=== PATIENT | female | born 2000 | race Caucasian/White ===

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

== ENCOUNTER 2019-01-11 20:50 | Inpatient (IN) | payer OTHER ==
[2019-01-11 21:08] LABS: Glucose,Whole Blood 511 mg/dL (75-99)
[2019-01-11] MEDS ORDERED: SODIUM CHLORIDE 0.9% 1,000 ML IV ONE (21:12)
[2019-01-11 21:29] LABS: Basophils # (A) 0.3 k/uL (0-0.2); Basophils % (A) 1 %; Eosinophils # (A) 0.4 k/uL (0-0.7); Eosinophils % (A) 1 %; HCT 45.6 % (34.0-46.0); HGB 12.9 gm/dL (11.4-16.0); Hypochromasia Marked; Lymphocytes # (A) 6.3 k/uL (1.0-4.8); Lymphocytes % (A) 17 %; MCH 29.6 pg (25.0-35.0); MCHC 28.4 g/dL (31.0-37.0); MCV 104.5 fL (80.0-100.0); Macrocytosis Slight; Mean Platelet Volume 7.6; Monocytes # (A) 1.7 k/uL (0-1.0); Monocytes % (A) 5 %; Neutrophils % (A) 75 %; Platelet Count 365 k/uL (150-450); RBC 4.37 m/uL (3.80-5.40); RDW 12.4 % (11.5-15.5); WBC 37.2 k/uL (4.0-11.0)
[2019-01-11 21:38] LABS: ALT 33 U/L (9-52); AST 84 U/L (14-36); African American GFR (CKD) >90 (>60 ml/min/1.73 sqM); Albumin 3.9 g/dL (3.5-5.0); Alkaline Phosphatase 173 U/L (38-126); Blood Urea Nitrogen 22 mg/dL (7-17); Calcium 7.3 mg/dL (8.4-10.2); Chloride 118 mmol/L (98-107); HCG,Qualitative Serum Not Detected; Magnesium 2.1 mg/dL (1.6-2.3); Sodium 148 mmol/L (137-145); Total Bilirubin 0.4 mg/dL (0.2-1.3); Total Protein 6.7 g/dL (6.3-8.2)
[2019-01-11 21:52] LABS: Carbon Dioxide <5 mmol/L (22-30); Glucose 556 mg/dL (74-99)
[2019-01-11] MEDS ORDERED: MORPHINE SULFATE 4 MG/ML SYRINGE IVP STA (22:02)
--- NOTE | 2019-01-11 22:21 | ED ---
General Adult HPI - General Chief complaint: Recheck/Abnormal Lab/Rx Stated complaint: Transfer Time Seen by Provider: 01/11/19 20:54 Source: family, EMS Mode of arrival: EMS Limitations: altered mental status - History of Present Illness Initial comments: The patient is a 18-year-old female with past medical history of type 1 diabetes who presents to the emergency department in [facility]. She is a transfer from [facility]. I reviewed the patient's charts from their facility. It does reveal that the patient was found minimally responsive at a friend's house. She was taken into [facility] for evaluation she was found to be in DKA. The patient's mother is at bedside. She states that her daughter has been in DKA several times for noncompliance and also for acute urinary tract infections. She does follow with Dr. Yeboah. It is unknown when the patient took her last dose of insulin. Review of the patient's [place] record demonstrates that his pH was 6.7. Her initial glucose was in the 600s. CO2 was less than 2. They did provide her with 4 L of fluid and started her on an insulin drip at 6 units per hour. They discontinued the drip prior to her transfer. They also gave her dose of Vanco and cefepime as her white blood cell count was 42,000. Chest x-ray was negative. She was then transferred in critical stable condition. She does arrive to me and cannot provide any history. She remains in the examination cart and moans. She will open her eyes however she is very uncooperative. She will follow all of her mother's commands. The remainder of the HPI is limited because the patient's current condition - Related Data Previous Rx's Medication Instructions Recorded Escitalopram [Lexapro] 10 mg PO DAILY #30 tab 01/14/19 Insulin Aspart [NovoLOG Flexpen] 0 units SQ DIRECTED #1 ml 01/14/19 Insulin Aspart [NovoLOG Flexpen] See Protocol SQ ACHS #1 pen 01/14/19 Insulin Glargine,Hum.rec.anlog 30 unit SQ HS #0 01/14/19 [Lantus Solostar] Nicotine 21Mg/24Hr Patch [Habitrol] 1 patch TRANSDERM DAILY #14 patch 01/14/19 Allergies Allergy/AdvReac Type Severity Reaction Status Date / Time guanfacine [From Intuniv ER] Allergy Unknown Verified 01/11/19 21:59 insulin lispro [From Humalog] Allergy Anaphylaxis Verified 01/11/19 21:59 insulin regular, human Allergy Dyspnea, Verified 01/11/19 21:59 [From Humulin R] Hives Review of Systems ROS Statement: Those systems with pertinent positive or pertinent negative responses have been documented in the HPI. ROS Other: All systems not noted in ROS Statement are negative. Past Medical History Past Medical History: Diabetes Mellitus, GERD/Reflux, Skin Disorder Additional Past Medical History / Comment(s): migraines, psoriasis, was in [facility] 06/2015 with pancreatitis and diabetic ketoacidosis. diabetic since age 1, History of Any Multi-Drug Resistant Organisms: None Reported Past Surgical History: Appendectomy, Cholecystectomy Additional Past Surgical History / Comment(s): EGD, Past Anesthesia/Blood Transfusion Reactions: Motion Sickness, Postoperative Nausea & Vomiting (PONV) Additional Past Anesthesia/Blood Transfusion Reaction / Comment(s): "took her longer to come out". Past Psychological History: ADD/ADHD, Anxiety, PTSD Smoking Status: Light tobacco smoker Past Alcohol Use History: None Reported Past Drug Use History: None Reported - Past Family History Mother Family Medical History: No Reported History Additional Family Medical History / Comment(s): "not in contact with mother" Father History Unknown: Yes General Exam Limitations: altered mental status General appearance: alert, in distress Head exam: Present: atraumatic, normocephalic Eye exam: Present: normal appearance, PERRL, EOMI ENT exam: Present: mucous membranes dry Neck exam: Absent: tenderness, meningismus Respiratory exam: Present: normal lung sounds bilaterally. Absent: wheezes, rales, rhonchi Cardiovascular Exam: Present: normal rhythm, tachycardia GI/Abdominal exam: Present: tenderness, guarding Extremities exam: Present: full ROM. Absent: tenderness Back exam: Present: normal inspection Neurological exam: Present: altered Psychiatric exam: Present: agitated Skin exam: Present: intact, diaphoretic Course Vital Signs 01/11/19 01/11/19 01/11/19 20:56 21:00 21:10 Temperature Pulse Rate 112 H Respiratory 40 H Rate Blood Pressure 126/81 126/81 143/114 O2 Sat by Pulse 100 98 99 Oximetry 01/11/19 01/11/19 01/11/19 21:20 21:30 22:38 Temperature Pulse Rate 113 H 109 H Respiratory 35 H 26 H Rate Blood Pressure 110/60 109/66 110/70 O2 Sat by Pulse 96 100 Oximetry 01/11/19 01/11/19 01/11/19 22:40 23:00 23:10 Temperature Pulse Rate 107 H Respiratory 32 H Rate Blood Pressure 110/70 115/63 115/63 O2 Sat by Pulse 100 100 Oximetry 01/11/19 01/12/19 01/12/19 23:40 00:10 00:17 Temperature 92.8 F L Pulse Rate 116 H Respiratory 32 H Rate Blood Pressure 137/100 139/85 139/85 O2 Sat by Pulse 100 Oximetry 01/12/19 01/12/19 00:40 01:20 Temperature Pulse Rate Respiratory Rate Blood Pressure 126/69 110/63 O2 Sat by Pulse 100 Oximetry EKG Findings - EKG Comments: EKG Findings:: EKG demonstrates a sinus tachycardia with a ventricular rate of 110. AR interval 146. QRS E4. QTC 503. There is significant baseline artifact. No acute ST segment elevations or depressions. Medical Decision Making - Medical Decision Making Upon arrival the patient is placed in trauma bay 1. She is hooked up to continuous pulse ox and cardiac monitoring. A peripheral IV had been esta blished. As the patient did receive 4 L bolus of normal saline I did place her on 150 mL of normal saline per hour. I did repeat laboratory studies and an ABG. I did scan the patient's brain as she is altered. I also performed a CT of the patient's abdomen and pelvis as her mother reports that the patient has had diffuse abdominal pain and is requesting the scan. Upon review of the patient's results she continues to have a pH of 6.7. She was previously given 1 amp of bicarbonate at [facility]. The patient's blood glucose is 556 on Accu-Chek and 511 on the CMP. Sodium is 148, chloride 118, white blood for count 37,000, lactic acid 3.2. Acetone is positive. test is nega tive. Because of these results I did initiate the patient once again on an insulin drip at 4 units per hour. The patient is on a NovoLog drip as she is ALLERGIC to other insulins. I did call and inform the pharmacy of this and they were aware of the requested medication. The patient should be started at 6 units per hour however I am conservative as her mother reports that she has a tendency to drop very fast. I did call discuss case with Dr. branham who did recommend ICU admission. I called and discussed the case with Dr. Espino. I was advised to continue the patient on normal saline. He also requested I give the patient 2 amps of bicarb for her continued pH of 6.7. We did attempt to obtain a temp on the patient. We are forced to obtain a rectal temp as it is difficult to get an axillary. The patient does demonstrate hypothermia with a temp of 92. The patient is then placed on a heating blanket. The patient continues to be responsive to her mother's commands. I updated the parents thoroughly. The patient was then transported to the ICU in critical condition. Critical care time included for review of the patients transfer chart, serial physical exams, consultation with pharmacy, hospitalist and filemaker developer and management of insulin and crystalloid fluid drips. - Lab Data Result diagrams: 01/13/19 05:04 01/14/19 05:32 Lab Results 01/11/19 01/11/19 01/11/19 Range/Units 21:00 21:00 21:00 WBC 37.2 H (4.0-11.0) k/uL RBC 4.37 (3.80-5.40) m/uL Hgb 12.9 (11.4-16.0) gm/dL Hct 45.6 (34.0-46.0) % MCV 104.5 H (80.0-100.0) fL MCH 29.6 (25.0-35.0) pg MCHC 28.4 L (31.0-37.0) g/dL RDW 12.4 (11.5-15.5) % Plt Count 365 (150-450) k/uL Neutrophils % 75 % Lymphocytes % 17 % Monocytes % 5 % Eosinophils % 1 % Basophils % 1 % Neutrophils # 28.0 H (1.3-7.7) k/uL Lymphocytes # 6.3 H (1.0-4.8) k/uL Monocytes # 1.7 H (0-1.0) k/uL Eosinophils # 0.4 (0-0.7) k/uL Basophils # 0.3 H (0-0.2) k/uL Hypochromasia Marked Macrocytosis Slight Sample Site ABG pH (7.35-7.45) ABG pCO2 (35-45) mmHg ABG pO2 (83-108) mmHg ABG O2 Saturation (94-97) % Alessandro Test FiO2 % Sodium 148 H (137-145) mmol/L Potassium 5.0 (3.5-5.1) mmol/L Chloride 118 H (98-107) mmol/L Carbon Dioxide <5 L* (22-30) mmol/L Anion Gap mmol/L BUN 22 H (7-17) mg/dL Creatinine 0.90 (0.52-1.04) mg/dL Est GFR (CKD-EPI)AfAm >90 (>60 ml/min/1.73 sqM) Est GFR (CKD-EPI)NonAf >90 (>60 ml/min/1.73 sqM) Glucose 556 H* (74-99) mg/dL POC Glucose (mg/dL) (75-99) mg/dL POC Glu Therapist ID Estimated Ave Glu mg/dL Hemoglobin A1c (4.0-6.0) % Lactic Ac Sepsis Rflx Plasma Lactic Acid Manny 3.2 H* (0.7-2.0) mmol/L Calcium 7.3 L (8.4-10.2) mg/dL Magnesium 2.1 (1.6-2.3) mg/dL Total Bilirubin 0.4 (0.2-1.3) mg/dL AST 84 H (14-36) U/L ALT 33 (9-52) U/L Alkaline Phosphatase 173 H (38-126) U/L Ammonia (<30) umol/L Total Protein 6.7 (6.3-8.2) g/dL Albumin 3.9 (3.5-5.0) g/dL HCG, Qual Not Detected Acetone, Qual Positive (Negative) 01/11/19 01/11/19 01/11/19 Range/Units 21:00 21:00 21:04 WBC (4.0-11.0) k/uL RBC (3.80-5.40) m/uL Hgb (11.4-16.0) gm/dL Hct (34.0-46.0) % MCV (80.0-100.0) fL MCH (25.0-35.0) pg MCHC (31.0-37.0) g/dL RDW (11.5-15.5) % Plt Count (150-450) k/uL Neutrophils % % Lymphocytes % % Monocytes % % Eosinophils % % Basophils % % Neutrophils # (1.3-7.7) k/uL Lymphocytes # (1.0-4.8) k/uL Monocytes # (0-1.0) k/uL Eosinophils # (0-0.7) k/uL Basophils # (0-0.2) k/uL Hypochromasia Macrocytosis Sample Site ABG pH (7.35-7.45) ABG pCO2 (35-45) mmHg ABG pO2 (83-108) mmHg ABG O2 Saturation (94-97) % Alessandro Test FiO2 % Sodium (137-145) mmol/L Potassium (3.5-5.1) mmol/L Chloride (98-107) mmol/L Carbon Dioxide (22-30) mmol/L Anion Gap mmol/L BUN (7-17) mg/dL Creatinine (0.52-1.04) mg/dL Est GFR (CKD-EPI)AfAm (>60 ml/min/1.73 sqM) Est GFR (CKD-EPI)NonAf (>60 ml/min/1.73 sqM) Glucose (74-99) mg/dL POC Glucose (mg/dL) 511 H (75-99) mg/dL POC Glu Therapist ID Antonia Mejía [address] Glu mg/dL 269 Hemoglobin A1c 11.0 H (4.0-6.0) % Lactic Ac Sepsis Rflx Plasma Lactic Acid Manny (0.7-2.0) mmol/L Calcium (8.4-10.2) mg/dL Magnesium (1.6-2.3) mg/dL Total Bilirubin (0.2-1.3) mg/dL AST (14-36) U/L ALT (9-52) U/L Alkaline Phosphatase (38-126) U/L Ammonia 115 H (<30) umol/L Total Protein (6.3-8.2) g/dL Albumin (3.5-5.0) g/dL HCG, Qual Acetone, Qual (Negative) 09/03/19 09/03/19 09/03/19 Range/Units 21:51 23:10 23:29 WBC (4.0-11.0) k/uL RBC (3.80-5.40) m/uL Hgb (11.4-16.0) gm/dL Hct (34.0-46.0) % MCV (80.0-100.0) fL MCH (25.0-35.0) pg MCHC (31.0-37.0) g/dL RDW (11.5-15.5) % Plt Count (150-450) k/uL Neutrophils % % Lymphocytes % % Monocytes % % Eosinophils % % Basophils % % Neutrophils # (1.3-7.7) k/uL Lymphocytes # (1.0-4.8) k/uL Monocytes # (0-1.0) k/uL Eosinophils # (0-0.7) k/uL Basophils # (0-0.2) k/uL Hypochromasia Macrocytosis Sample Site l rad ABG pH <6.80 L* (7.35-7.45) ABG pCO2 <15 L* (35-45) mmHg ABG pO2 148 H (83-108) mmHg ABG O2 Saturation 97.9 H (94-97) % Alessandro Test Yes FiO2 21 % Sodium (137-145) mmol/L Potassium (3.5-5.1) mmol/L Chloride (98-107) mmol/L Carbon Dioxide (22-30) mmol/L Anion Gap mmol/L BUN (7-17) mg/dL Creatinine (0.52-1.04) mg/dL Est GFR (CKD-EPI)AfAm (>60 ml/min/1.73 sqM) Est GFR (CKD-EPI)NonAf (>60 ml/min/1.73 sqM) Glucose (74-99) mg/dL POC Glucose (mg/dL) 413 H (75-99) mg/dL POC Glu Therapist ID Emily Booth [address] Glu mg/dL Hemoglobin A1c (4.0-6.0) % Lactic Ac Sepsis Rflx Y Plasma Lactic Acid Manny (0.7-2.0) mmol/L Calcium (8.4-10.2) mg/dL Magnesium (1.6-2.3) mg/dL Total Bilirubin (0.2-1.3) mg/dL AST (14-36) U/L ALT (9-52) U/L Alkaline Phosphatase (38-126) U/L Ammonia (<30) umol/L Total Protein (6.3-8.2) g/dL Albumin (3.5-5.0) g/dL HCG, Qual Acetone, Qual (Negative) 01/12/19 Range/Units 00:19 WBC (4.0-11.0) k/uL RBC (3.80-5.40) m/uL Hgb (11.4-16.0) gm/dL Hct (34.0-46.0) % MCV (80.0-100.0) fL MCH (25.0-35.0) pg MCHC (31.0-37.0) g/dL RDW (11.5-15.5) % Plt Count (150-450) k/uL Neutrophils % % Lymphocytes % % Monocytes % % Eosinophils % % Basophils % % Neutrophils # (1.3-7.7) k/uL Lymphocytes # (1.0-4.8) k/uL Monocytes # (0-1.0) k/uL Eosinophils # (0-0.7) k/uL Basophils # (0-0.2) k/uL Hypochromasia Macrocytosis Sample Site ABG pH (7.35-7.45) ABG pCO2 (35-45) mmHg ABG pO2 (83-108) mmHg ABG O2 Saturation (94-97) % Alessandro Test FiO2 % Sodium (137-145) mmol/L Potassium (3.5-5.1) mmol/L Chloride (98-107) mmol/L Carbon Dioxide (22-30) mmol/L Anion Gap mmol/L BUN (7-17) mg/dL Creatinine (0.52-1.04) mg/dL Est GFR (CKD-EPI)AfAm (>60 ml/min/1.73 sqM) Est GFR (CKD-EPI)NonAf (>60 ml/min/1.73 sqM) Glucose (74-99) mg/dL POC Glucose (mg/dL) 345 H (75-99) mg/dL POC Glu Therapist ID Edna Ace Estimated Ave Glu mg/dL Hemoglobin A1c (4.0-6.0) % Lactic Ac Sepsis Rflx Plasma Lactic Acid Manny (0.7-2.0) mmol/L Calcium (8.4-10.2) mg/dL Magnesium (1.6-2.3) mg/dL Total Bilirubin (0.2-1.3) mg/dL AST (14-36) U/L ALT (9-52) U/L Alkaline Phosphatase (38-126) U/L Ammonia (<30) umol/L Total Protein (6.3-8.2) g/dL Albumin (3.5-5.0) g/dL HCG, Qual Acetone, Qual (Negative) Critical Care Time Critical Care Time: Yes Total Critical Care Time: 35 (minutes) Disposition Clinical Impression: Low bicarbonate, DKA (diabetic ketoacidoses), Hypothermia, Leukocytosis, Fever Disposition: ADMITTED IP TO THIS [facility] Condition: Stable Is patient prescribed a controlled substance at d/c from ED?: No Decision to Admit Reason: Admit from EC Decision Date: 01/12/19 Decision Time: 00:02
[2019-01-11] MEDS ORDERED: SODIUM CHLORIDE 0.9% IV ONE (22:30)
[2019-01-11] MEDS ORDERED: NOVOLOG IV ONE (22:30)
--- NOTE | 2019-01-11 23:09 | CT ---
EXAM: CT Head Without Intravenous Contrast CLINICAL HISTORY: ITS.REASON CT Reason: pain TECHNIQUE: Axial computed tomography images of the head/brain without intravenous contrast. CTDI is 49.1 mGy and DLP is 1095 mGy-cm. This CT exam was performed using one or more of the following dose reduction techniques: automated exposure control, adjustment of the mA and/or kV according to patient size, and/or use of iterative reconstruction technique. COMPARISON: None. FINDINGS: Brain: Unremarkable. No hemorrhage. No significant white matter disease. No edema. Ventricles: Unremarkable. No ventriculomegaly. Bones/joints: Unremarkable. No acute fracture. Soft tissues: Unremarkable. Sinuses: Unremarkable as visualized. No acute sinusitis. Mastoid air cells: Unremarkable as visualized. No mastoid effusion. IMPRESSION: No intracranial hemorrhage or other acute intracranial abnormality.
[2019-01-11 23:12] LABS: Glucose,Whole Blood 413 mg/dL (75-99)
[2019-01-11] MEDS: [UNRECOGNIZED DRUG - REMARK] IV SCH (23:24)
--- NOTE | 2019-01-11 23:26 | CT ---
EXAM: CT Abdomen and Pelvis With Intravenous Contrast CLINICAL HISTORY: ITS.REASON CT Reason: Pain TECHNIQUE: Axial computed tomography images of the abdomen and pelvis with intravenous contrast. CTDI is 9.4, 8.7 mGy and DLP is 543, 329 mGy-cm. This CT exam was performed using one or more of the following dose reduction techniques: automated exposure control, adjustment of the mA and/or kV according to patient size, and/or use of iterative reconstruction technique. Delayed imaging was performed. COMPARISON: None. FINDINGS: Lung bases: Unremarkable. No mass. No consolidation. ABDOMEN: Liver: Periportal edema is seen. Gallbladder and bile ducts: Gallbladder is not visualized. No ductal dilation. Pancreas: Unremarkable. No mass. No ductal dilation. Spleen: Unremarkable. No splenomegaly. Adrenals: Unremarkable. No mass. Kidneys and ureters: Unremarkable. No solid mass. No hydronephrosis. Stomach and bowel: Unremarkable. No obstruction. No mucosal thickening. PELVIS: Appendix: No findings to suggest acute appendicitis. Bladder: The urinary bladder is decompressed by a Celaya catheter. Reproductive: Unremarkable as visualized. ABDOMEN and PELVIS: Intraperitoneal space: Unremarkable. No free air. No significant fluid collection. Bones/joints: No acute fracture. No dislocation. Soft tissues: Unremarkable. Vasculature: Unremarkable. No abdominal aortic aneurysm. Lymph nodes: Unremarkable. No enlarged lymph nodes. IMPRESSION: No acute findings.
[2019-01-11 23:39] LABS: ABG Oxygen Saturation 97.9 % (94-97); ABG PO2 148 mmHg (83-108); Allen Test Performed? Yes
[2019-01-11 23:42] LABS: ABG PH <6.80 (7.35-7.45)
[2019-01-11 23:43] LABS: ABG PCO2 <15 mmHg (35-45)
[2019-01-12] MEDS ORDERED: SODIUM BICARB 8.4% 50 ML SYR (1 MEQ/ML) IV STA ×3 (00:10→09:53)
[2019-01-12 00:39] LABS: Glucose,Whole Blood 345 mg/dL (75-99)
[2019-01-12 01:11] LABS: Glucose,Whole Blood 408 mg/dL (75-99)
[2019-01-12 01:39] LABS: Glucose,Whole Blood 330 mg/dL (75-99)
[2019-01-12] MEDS ORDERED: Magnesium Replacement Protocol 1 EACH MISC MISCELLANE PRN (01:43)
[2019-01-12] MEDS ORDERED: Potassium Replacement Protocol 1 EACH MISC MISCELLANE PRN (01:43)
[2019-01-12] MEDS ORDERED: SODIUM CHLORIDE 0.9% 1,000 ML IV SCH (01:45)
[2019-01-12 02:41] LABS: Glucose,Whole Blood 284 mg/dL (75-99)
[2019-01-12 03:02] LABS: Glucose,Whole Blood 296 mg/dL (75-99)
[2019-01-12] MEDS ORDERED: DEXTROSE 5%-0.45% NACL 1,000 ML with POTASSIUM CHLORIDE 20 MEQ IV SCH ×2 (03:50)
[2019-01-12 03:55] LABS: VBG PH 6.84 (7.31-7.41)
[2019-01-12 04:00] LABS: Basophils # (A) 0.4 k/uL (0-0.2); Basophils % (A) 1 %; Eosinophils # (A) 0.1 k/uL (0-0.7); Eosinophils % (A) 1 %; HCT 42.6 % (34.0-46.0); HGB 13.1 gm/dL (11.4-16.0); Hypochromasia Marked; Lymphocytes # (A) 4.3 k/uL (1.0-4.8); Lymphocytes % (A) 15 %; MCHC 30.8 g/dL (31.0-37.0); Mean Platelet Volume 7.5; Monocytes # (A) 1.3 k/uL (0-1.0); Monocytes % (A) 4 %; Neutrophils # (A) 23.5 k/uL (1.3-7.7); Neutrophils % (A) 78 %; Platelet Count 335 k/uL (150-450); RBC 4.37 m/uL (3.80-5.40); RDW 13.1 % (11.5-15.5); WBC 29.9 k/uL (4.0-11.0)
[2019-01-12 04:03] LABS: Glucose,Whole Blood 298 mg/dL (75-99)
[2019-01-12 04:09] LABS: African American GFR (CKD) >90 (>60 ml/min/1.73 sqM); Blood Urea Nitrogen 20 mg/dL (7-17); Chloride 122 mmol/L (98-107); Glucose 272 mg/dL (74-99); Potassium 4.9 mmol/L (3.5-5.1); Sodium 153 mmol/L (137-145)
[2019-01-12 04:13] LABS: MCV 97.3 fL (80.0-100.0)
[2019-01-12 04:36] LABS: Carbon Dioxide <5 mmol/L (22-30)
[2019-01-12 05:16] LABS: Glucose,Whole Blood 219 mg/dL (75-99)
[2019-01-12 05:48] LABS: African American GFR (CKD) >90 (>60 ml/min/1.73 sqM); Blood Urea Nitrogen 19 mg/dL (7-17); Chloride 125 mmol/L (98-107); Glucose 242 mg/dL (74-99); Phosphorus 1.6 mg/dL (2.5-4.5); Potassium 4.5 mmol/L (3.5-5.1); Sodium 152 mmol/L (137-145)
[2019-01-12 06:00] LABS: Glucose,Whole Blood 270 mg/dL (75-99)
[2019-01-12 06:06] LABS: Appearance,Urine Clear (Clear); Bacteria,Urine Occasional /hpf; Bilirubin,Urine Negative (Negative); Blood,Urine Trace (Negative); Color,Urine Light Yellow; Glucose,Urine (UA) 1+ (Negative); Leukocyte Esterase,Urine Negative (Negative); Mucus,Urine Occasional /hpf; Nitrite,Urine Negative (Negative); PH, Urine 5.5 (5.0-8.0); Protein,Urine Negative (Negative); RBC,Urine 2 /hpf (0-5); Specific Gravity,Urine 1.015 (1.001-1.035); Squamous Epithelial Cell,Urine 2 /hpf (0-4); Urobilinogen,Urine <2.0 mg/dL (<2.0); WBC,Urine 1 /hpf (0-5)
[2019-01-12 06:17] LABS: Allen Test Performed? Yes
[2019-01-12 06:19] LABS: ABG PCO2 15 mmHg (35-45); ABG PH 7.02 (7.35-7.45); ABG PO2 125 mmHg (83-108)
[2019-01-12 07:05] LABS: Glucose,Whole Blood 218 mg/dL (75-99)
[2019-01-12 07:05] LABS: Glucose,Whole Blood 227 mg/dL (75-99)
[2019-01-12 07:09] LABS: Ketones,Urine 4+ (Negative)
[2019-01-12 07:16] LABS: Carbon Dioxide <5 mmol/L (22-30)
[2019-01-12] MEDS ORDERED: Phosphorus Replacement Protoco 1 EACH MISC MISCELLANE PRN (07:32)
[2019-01-12] MEDS ORDERED: DEXTROSE 5%-0.45% NACL 1,000 ML IV SCH (08:00)
[2019-01-12 08:20] LABS: Glucose,Whole Blood 472 mg/dL (75-99)
[2019-01-12] MEDS: ENOXAPARIN 40 MG/0.4 ML SYRINGE SQ SCH (08:22)
[2019-01-12] MEDS ORDERED: SODIUM CHLORIDE 0.9% 1,000 ML IV ONE (08:28)
[2019-01-12] MEDS: POTASSIUM PHOSPHATE 10 MMOL in SODIUM CHLORIDE 0.9% 250 ML IV SCH ×2 (08:39→10:33)
--- NOTE | 2019-01-12 08:42 | XR ---
EXAMINATION TYPE: XR chest 1V portable DATE OF EXAM: 01/12/2019 COMPARISON: NONE HISTORY: Shortness of breath TECHNIQUE: Single frontal view of the chest is obtained. FINDINGS: Nodule is seen within the lateral right midlung measuring 1.5 cm. This could relate to ove rlying density and could be assessed with 2 view chest x-ray. Very minimal peribronchial cuffing venkat g the bronchus intermedius. Remainder the lungs are clear. Cardia mediastinal silhouette is within no rmal limits. No acute osseous pathology. IMPRESSION: 1.5 cm right midlung nodular density that could be external to the patient. 2V chest cou ld further evaluate this finding. Minimal peribronchial cuffing along the bronchus intermedius, react remberto or infectious airway disease should be considered.
[2019-01-12 09:07] LABS: Glucose,Whole Blood 233 mg/dL (75-99)
[2019-01-12 09:51] LABS: ABG Oxygen Saturation 98.4 % (94-97); ABG PO2 119 mmHg (83-108); Allen Test Performed? Yes
[2019-01-12 09:53] LABS: ABG PH 6.98 (7.35-7.45)
[2019-01-12 09:54] LABS: ABG PCO2 <15 mmHg (35-45)
[2019-01-12] MEDS ORDERED: CEFEPIME 1 GM VIAL IM SCH (10:15)
[2019-01-12 10:17] LABS: HCT 39.5 % (34.0-46.0); HGB 12.7 gm/dL (11.4-16.0); Hypochromasia Moderate; MCH 30.9 pg (25.0-35.0); MCHC 32.2 g/dL (31.0-37.0); MCV 96.1 fL (80.0-100.0); Mean Platelet Volume 6.9; Platelet Count 302 k/uL (150-450); RBC 4.11 m/uL (3.80-5.40); RDW 12.8 % (11.5-15.5)
[2019-01-12 10:23] LABS: Glucose,Whole Blood 230 mg/dL (75-99)
[2019-01-12 10:27] LABS: African American GFR (CKD) >90 (>60 ml/min/1.73 sqM); Blood Urea Nitrogen 18 mg/dL (7-17); Calcium 7.8 mg/dL (8.4-10.2); Chloride 128 mmol/L (98-107); Glucose 261 mg/dL (74-99); Potassium 4.3 mmol/L (3.5-5.1); Sodium 156 mmol/L (137-145)
--- NOTE | 2019-01-12 10:27 | P.CNPUL ---
<Michelle Lopes M - Last Filed: 01/12/19 09:43> History of Present Illness Consult date: 01/12/19 Requesting physician: Kadeem Crabtree Chief complaint: Diabetic ketoacidosis History of present illness: This is a 18-year-old white female patient with past medical history of type 1 diabetes diagnosed at age 2, previous episodes of diabetic ketoacidosis and pancreatitis, migraine headaches, psoriasis, ADD/ADHD, anxiety, PTSD, smoker, history of appendectomy and cholecystectomy, who was transferred from [facility] on 01/11/2019 at 2050 in the evening, where she was taken by ambulance for evaluation of her mental status, confusion, and suspected diabetic ketoacidosis. Patient's mother is at the bedside, and was providing most of the information, she states her daughter is 18, and she has been residing with her boyfriend. The last couple days she is complaining of constipation, yesterday morning patient had a couple episodes of vomiting, her mentation was appropriate. Apparently the boyfriend had checked on the patient through the day, and patient had gotten progressively worse, with decreasing mentation, confusion. Patient follows with Dr. Lopez, and she is on a combination of NovoLog, and Lantus 40 units at bedtime. Last A1c is unknown. Review of the patient's [place] record demonstrates that her pH was 6.7, and her initial glucose was in the 600s, CO2 was less than 2. The patient was fluid resuscitated with 4 L of fluid and started on insulin infusion at 6 units per hour. His given empiric antibiotic in the form of vancomycin and cefepime evidence of leukocytosis with a white blood cell count of 42,000, chest x-ray was negative. Urinalysis was positive for 4+ ketones, glucose, but negative for signs of infection, serum acetone was positive 2, hCG was not detected, patient did have a mild lactic acidosis, of 3.2, she received a total of 5 L of fluid, 4 L at [facility] and one at [facility]. Current lactic acid is 1.0. Follow-up blood gas showed a pH of 7.02, pCO2 of 15, and pO2 of 125, patient was given sodium bicarb, this morning his blood work showed a sodium of 152, potassium is 4.5, chloride is 125, CO2 is less than 5, BUN is 19 and creatinine 0.90. Patient is currently in the intensive care unit, and she is quite confused, delirious, she is yelling out at times, her mother is at the bedside, patient is still tachycardic, with a heart rate in the 140s, but pressure is 105/68, respirations are rapid, 30-38 respirations per minute, rectal temp was 98.2. We'll send blood cultures, we'll give the patient additional 1 L bolus of 0.45 saline, and we'll repeat a blood gas and electrolytes, insulin infusion is at 5 units per hour. Review of Systems All systems: negative Constitutional: Denies chills, Denies fever Eyes: denies blurred vision, denies pain Ears, nose, mouth and throat: Denies headache, Denies sore throat Cardiovascular: Denies chest pain, Denies shortness of breath Respiratory: Denies cough Gastrointestinal: Reports constipation, Denies abdominal pain, Denies diarrhea, Denies nausea, Denies vomiting Genitourinary: Denies dysuria, Denies hematuria Musculoskeletal: Denies myalgias Integumentary: Denies pruritus, Denies rash Neurological: Reports change in mentation, Reports weakness, Denies numbness Psychiatric: Denies anxiety, Denies depression Endocrine: Denies fatigue, Denies weight change Past Medical History Past Medical History: Diabetes Mellitus, GERD/Reflux, Skin Disorder Additional Past Medical History / Comment(s): migraines, psoriasis, was in [facility] 06/2015 with pancreatitis and diabetic ketoacidosis. diabetic since age 1, History of Any Multi-Drug Resistant Organisms: None Reported Past Surgical History: Appendectomy, Cholecystectomy Additional Past Surgical History / Comment(s): EGD, Past Anesthesia/Blood Transfusion Reactions: Motion Sickness, Postoperative Nausea & Vomiting (PONV) Additional Past Anesthesia/Blood Transfusion Reaction / Comment(s): "took her longer to come out". Past Psychological History: ADD/ADHD, Anxiety, PTSD Smoking Status: Light tobacco smoker Past Alcohol Use History: None Reported Past Drug Use History: None Reported - Past Family History Mother Family Medical History: No Reported History Additional Family Medical History / Comment(s): "not in contact with mother" Father History Unknown: Yes Medications and Allergies Home Medications Medication Instructions Recorded Confirmed Type Insulin Aspart [NovoLOG Flexpen] See Protocol SQ ACHS 10/22/18 01/11/19 History Insulin Glargine,Hum.rec.anlog 40 unit SQ HS 10/22/18 01/11/19 History [Lantus Solostar] Allergies Allergy/AdvReac Type Severity Reaction Status Date / Time guanfacine [From Intuniv ER] Allergy Unknown Verified 01/11/19 21:59 insulin lispro [From Humalog] Allergy Anaphylaxis Verified 01/11/19 21:59 insulin regular, human Allergy Dyspnea, Verified 01/11/19 21:59 [From Humulin R] Hives Physical Exam Vitals: Vital Signs Temp Pulse Resp BP Pulse Ox 01/12/19 09:00 147 H 38 H 122/60 100 01/12/19 08:30 144 H 30 H 105/68 100 01/12/19 08:00 147 H 42 H 116/58 100 01/12/19 07:30 98.2 F 147 H 45 H 114/58 99 01/12/19 07:00 99.1 F 147 H 43 H 105/77 99 01/12/19 06:50 147 H 45 H 98 01/12/19 06:40 146 H 45 H 98 01/12/19 06:30 147 H 50 H 98 01/12/19 06:20 146 H 37 H 99 01/12/19 06:10 146 H 43 H 110/53 99 01/12/19 06:00 99.3 F 146 H 37 H 99 01/12/19 05:50 146 H 47 H 99 01/12/19 05:40 144 H 48 H 111/57 99 01/12/19 05:30 144 H 51 H 98 01/12/19 05:20 142 H 45 H 99 01/12/19 05:10 99.1 F 141 H 38 H 108/67 99 01/12/19 05:00 98.2 F 142 H 45 H 100 01/12/19 04:50 141 H 40 H 100 01/12/19 04:40 138 H 34 H 117/56 99 01/12/19 04:30 137 H 39 H 99 01/12/19 04:20 137 H 39 H 99 01/12/19 04:10 135 H 36 H 104/59 99 01/12/19 04:00 97.3 F L 135 H 35 H 116/59 99 01/12/19 03:50 134 H 39 H 99 01/12/19 03:45 97.3 F L 134 H 39 H 116/59 99 01/12/19 02:10 98 01/12/19 01:36 94.5 F L 113 H 30 H 110/63 100 01/12/19 01:20 110/63 100 01/12/19 00:40 126/69 01/12/19 00:17 92.8 F L 116 H 32 H 139/85 100 01/12/19 00:10 139/85 01/11/19 23:40 137/100 01/11/19 23:10 115/63 100 01/11/19 23:00 107 H 32 H 115/63 100 01/11/19 22:40 110/70 01/11/19 22:38 109 H 26 H 110/70 100 01/11/19 21:30 109/66 01/11/19 21:20 113 H 35 H 110/60 96 01/11/19 21:10 143/114 99 01/11/19 21:00 126/81 98 01/11/19 20:56 112 H 40 H 126/81 100 Intake and Output 01/11/19 01/12/19 01/12/19 22:59 06:59 14:59 Intake Total 574.143 8256.467 Output Total 2975 710 Balance -2506.216 874.467 Intake: IV 1525 Dextrose 5%-0.45% NaCl 1, 400 000 ml @ 200 mls/hr IV . Q5H VEGA Rx#:[id number] Potassium Phosphate 10 125 mmol In Sodium Chloride 0 .9% 250 ml @ 125 mls/hr IV Q2H VEGA Rx#:[id number] Sodium Chloride 0.9% 1, 1000 000 ml @ 999 mls/hr IV . Q1H1M ONE Rx#:[id number] Intake, IV Titration 468.784 59.467 Amount Dextrose 5%-0.45% NaCl 1, 150 50 000 ml @ 50 mls/hr IV . Q22H VEGA with Potassium Chloride 20 meq Rx#: [id number] Non-Formulary Drug 1 each 18.784 9.467 In Sodium Chloride 0.9% 100 ml @ Per Protocol IV .Q0M VEGA Rx#:[id number] Sodium Chloride 0.9% 1, 300 000 ml @ 150 mls/hr IV . Q6H40M ONE Rx#:[id number] Output: Urine 2975 710 Other: Voiding Method Indwelling Catheter Weight 69.717 kg GENERAL EXAM: Confused, lethargic, at times thrashing and yelling out, 18-year-old white female, slightly flushed, tachypneic respirations HEAD: Normocephalic/atraumatic. EYES: Normal reaction of pupils, equal size. Conjunctiva pink, sclera white. NOSE: Clear with pink turbinates. THROAT: No erythema or exudates. NECK: No masses, no JVD, no thyroid enlargement, no adenopathy. CHEST: No chest wall deformity. Symmetrical expansion. LUNGS: Equal air entry with no crackles, wheeze, rhonchi or dullness. CVS: Regular rate and rhythm, normal S1 and S2, no gallops, no murmurs, no rubs ABDOMEN: Soft, nontender. No hepatosplenomegaly, normal bowel sounds, no guarding or rigidity. EXTREMITIES: No clubbing, no edema, no cyanosis, 2+ pulses and upper and lower extremities. MUSCULOSKELETAL: Muscle strength and tone normal. SPINE: No scoliosis or deformity SKIN: No rashes CENTRAL NERVOUS SYSTEM: Confused. No focal deficits, tone is normal in all 4 extremities. Results - Laboratory Findings CBC and BMP: 01/12/19 03:34 01/12/19 05:15 ABG ABG pH 7.02 (7.35-7.45) L* 01/12/19 05:32 ABG pCO2 15 mmHg (35-45) L* 01/12/19 05:32 ABG pO2 125 mmHg (83-108) H 01/12/19 05:32 ABG O2 Saturation 99.0 % (94-97) H 01/12/19 05:32 Abnormal lab findings: Abnormal Labs 01/11/19 01/11/19 01/11/19 21:00 21:00 21:00 WBC 37.2 H MCV 104.5 H MCHC 28.4 L Neutrophils # 28.0 H Lymphocytes # 6.3 H Monocytes # 1.7 H Basophils # 0.3 H ABG pH ABG pCO2 ABG pO2 ABG O2 Saturation VBG pH VBG pCO2 VBG HCO3 Sodium 148 H Chloride 118 H Carbon Dioxide <5 L* BUN 22 H Glucose 556 H* POC Glucose (mg/dL) Hemoglobin A1c Plasma Lactic Acid Manny 3.2 H* Calcium 7.3 L Phosphorus AST 84 H Alkaline Phosphatase 173 H Ammonia Urine Glucose (UA) Urine Ketones Urine Blood Urine Bacteria Urine Mucus 01/11/19 01/11/19 01/11/19 21:00 21:00 21:04 WBC MCV MCHC Neutrophils # Lymphocytes # Monocytes # Basophils # ABG pH ABG pCO2 ABG pO2 ABG O2 Saturation VBG pH VBG pCO2 VBG HCO3 Sodium Chloride Carbon Dioxide BUN Glucose POC Glucose (mg/dL) 511 H Hemoglobin A1c 11.0 H Plasma Lactic Acid Manny Calcium Phosphorus AST Alkaline Phosphatase Ammonia 115 H Urine Glucose (UA) Urine Ketones Urine Blood Urine Bacteria Urine Mucus 01/11/19 01/11/19 01/12/19 23:10 23:29 00:19 WBC MCV MCHC Neutrophils # Lymphocytes # Monocytes # Basophils # ABG pH <6.80 L* ABG pCO2 <15 L* ABG pO2 148 H ABG O2 Saturation 97.9 H VBG pH VBG pCO2 VBG HCO3 Sodium Chloride Carbon Dioxide BUN Glucose POC Glucose (mg/dL) 413 H 345 H Hemoglobin A1c Plasma Lactic Acid Manny Calcium Phosphorus AST Alkaline Phosphatase Ammonia Urine Glucose (UA) Urine Ketones Urine Blood Urine Bacteria Urine Mucus 01/12/19 01/12/19 01/12/19 01:10 01:35 02:39 WBC MCV MCHC Neutrophils # Lymphocytes # Monocytes # Basophils # ABG pH ABG pCO2 ABG pO2 ABG O2 Saturation VBG pH VBG pCO2 VBG HCO3 Sodium Chloride Carbon Dioxide BUN Glucose POC Glucose (mg/dL) 408 H 330 H 284 H Hemoglobin A1c Plasma Lactic Acid Manny Calcium Phosphorus AST Alkaline Phosphatase Ammonia Urine Glucose (UA) Urine Ketones Urine Blood Urine Bacteria Urine Mucus 01/12/19 01/12/19 01/12/19 03:00 03:34 03:34 WBC 29.9 H MCV MCHC 30.8 L Neutrophils # 23.5 H Lymphocytes # Monocytes # 1.3 H Basophils # 0.4 H ABG pH ABG pCO2 ABG pO2 ABG O2 Saturation VBG pH 6.84 L* VBG pCO2 24 L VBG HCO3 4 L* Sodium Chloride Carbon Dioxide BUN Glucose POC Glucose (mg/dL) 296 H Hemoglobin A1c Plasma Lactic Acid Manny Calcium Phosphorus AST Alkaline Phosphatase Ammonia Urine Glucose (UA) Urine Ketones Urine Blood Urine Bacteria Urine Mucus 01/12/19 01/12/19 01/12/19 03:34 04:00 05:03 WBC MCV MCHC Neutrophils # Lymphocytes # Monocytes # Basophils # ABG pH ABG pCO2 ABG pO2 ABG O2 Saturation VBG pH VBG pCO2 VBG HCO3 Sodium 153 H Chloride 122 H Carbon Dioxide <5 L* BUN 20 H Glucose 272 H POC Glucose (mg/dL) 298 H 219 H Hemoglobin A1c Plasma Lactic Acid Manny Calcium Phosphorus AST Alkaline Phosphatase Ammonia Urine Glucose (UA) Urine Ketones Urine Blood Urine Bacteria Urine Mucus 01/12/19 01/12/19 01/12/19 05:15 05:25 05:32 WBC MCV MCHC Neutrophils # Lymphocytes # Monocytes # Basophils # ABG pH 7.02 L* ABG pCO2 15 L* ABG pO2 125 H ABG O2 Saturation 99.0 H VBG pH VBG pCO2 VBG HCO3 Sodium 152 H Chloride 125 H Carbon Dioxide <5 L* BUN 19 H Glucose 242 H POC Glucose (mg/dL) Hemoglobin A1c Plasma Lactic Acid Manny Calcium Phosphorus 1.6 L AST Alkaline Phosphatase Ammonia Urine Glucose (UA) 1+ H Urine Ketones 4+ H Urine Blood Trace H Urine Bacteria Occasional H Urine Mucus Occasional H 01/12/19 01/12/19 01/12/19 05:59 06:54 07:04 WBC MCV MCHC Neutrophils # Lymphocytes # Monocytes # Basophils # ABG pH ABG pCO2 ABG pO2 ABG O2 Saturation VBG pH VBG pCO2 VBG HCO3 Sodium Chloride Carbon Dioxide BUN Glucose POC Glucose (mg/dL) 270 H 218 H 227 H Hemoglobin A1c Plasma Lactic Acid Manny Calcium Phosphorus AST Alkaline Phosphatase Ammonia Urine Glucose (UA) Urine Ketones Urine Blood Urine Bacteria Urine Mucus 01/12/19 01/12/19 08:17 09:04 WBC MCV MCHC Neutrophils # Lymphocytes # Monocytes # Basophils # ABG pH ABG pCO2 ABG pO2 ABG O2 Saturation VBG pH VBG pCO2 VBG HCO3 Sodium Chloride Carbon Dioxide BUN Glucose POC Glucose (mg/dL) 472 H 233 H Hemoglobin A1c Plasma Lactic Acid Manny Calcium Phosphorus AST Alkaline Phosphatase Ammonia Urine Glucose (UA) Urine Ketones Urine Blood Urine Bacteria Urine Mucus - Diagnostic Findings Chest x-ray: report reviewed, image reviewed Additional studies: CT of abdomen and pelvis completed showing no acute findings. Brain CT showed no intracranial hemorrhage or other acute intracranial abnormality. Assessment and Plan Plan: Assessment: #1. Acute diabetic ketoacidosis #2. Severe anion gap metabolic acidosis due to the above #3. Severe dehydration, and significant metabolic disturbances including lactic acidosis and ketoacidosis #4. Leukocytosis, rule out sepsis #5. Altered mentation, delirium, metabolic encephalopathy, related to the above. CT negative for acute findings #6. Diabetes mellitus type 1 under the care of Dr. Lopez, last A1c is unknown #7. Previous episodes of DKA and pancreatitis #8. Migraine headaches #9. Psoriasis #10. History of cholecystectomy, and appendectomy #11. ADHD, anxiety, PTSD #12. Current smoker Plan: Repeat blood gas was obtained, showing evidence of severe metabolic acidosis with a pH of 6.9, pCO2 of 15, and pO2 of 119, was done on room air, patient will be given additional 3 A of sodium bicarb, and we'll add 2 A of bicarb to D5 half-normal saline. The electrolytes and renal profile has been drawn and is pending at this time, blood cultures have been obtained at [facility], we'll obtain additional blood cultures here, urinalysis without any signs of infection, chest x-ray is clear, there is a mention of 1.5 cm right midlung nodular density which was not seen on the chest x-ray completed at [facility]. Patient was given a dose of cefepime and vancomycin at [facility], will resume cefepime, will await the results of cultures, continue insulin infusion. White blood cell count is trending down, it's 29.9 on today's labs, patient is afebrile, she is still quite tachycardic, we'll give the patient additional IV bolus of 0.45 saline. We'll continue with repeat electrolytes every 4 hours per DKA protocol, IV hydration. We'll continue to follow I performed a history & physical examination of the patient and discussed their management with my nurse practitioner, Michelle Lopes. I reviewed the nurse practitioner's note and agree with the documented findings and plan of care. Lung sounds are positive for clear breath sounds. The findings and the impression was discussed with the patient. I attest to the documentation by the nurse practitioner. Time with Patient: Greater than 30 <Clark Espino - Last Filed: 01/12/19 16:57> Physical Exam Vitals: Vital Signs Temp Pulse Resp BP Pulse Ox 01/12/19 16:30 114 H 25 H 93/52 97 01/12/19 16:00 99.9 F H 117 H 24 99/48 98 01/12/19 15:30 116 H 23 93/53 99 01/12/19 15:08 29 H 01/12/19 15:00 100.6 F H 120 H 29 H 101/59 98 01/12/19 14:30 129 H 34 H 108/68 99 01/12/19 14:00 100.8 F H 126 H 43 H 121/58 100 01/12/19 13:30 100.8 F H 131 H 44 H 104/72 100 01/12/19 13:00 100.2 F H 128 H 35 H 105/68 100 01/12/19 12:30 130 H 34 H 108/57 100 01/12/19 12:00 99.9 F H 131 H 31 H 105/76 100 01/12/19 11:30 140 H 39 H 107/71 99 01/12/19 11:23 33 H 01/12/19 11:00 99.1 F 135 H 33 H 109/68 99 01/12/19 10:30 142 H 42 H 112/61 100 01/12/19 10:00 142 H 45 H 114/59 100 01/12/19 09:30 142 H 45 H 100/73 99 01/12/19 09:00 147 H 38 H 122/60 100 01/12/19 08:30 144 H 30 H 105/68 100 01/12/19 08:00 147 H 42 H 116/58 100 01/12/19 07:30 98.2 F 147 H 45 H 114/58 99 01/12/19 07:00 99.1 F 147 H 43 H 105/77 99 01/12/19 06:50 147 H 45 H 98 01/12/19 06:40 146 H 45 H 98 01/12/19 06:30 147 H 50 H 98 01/12/19 06:20 146 H 37 H 99 01/12/19 06:10 146 H 43 H 110/53 99 01/12/19 06:00 99.3 F 146 H 37 H 99 01/12/19 05:50 146 H 47 H 99 01/12/19 05:40 144 H 48 H 111/57 99 01/12/19 05:30 144 H 51 H 98 01/12/19 05:20 142 H 45 H 99 01/12/19 05:10 99.1 F 141 H 38 H 108/67 99 01/12/19 05:00 98.2 F 142 H 45 H 100 01/12/19 04:50 141 H 40 H 100 01/12/19 04:40 138 H 34 H 117/56 99 01/12/19 04:30 137 H 39 H 99 01/12/19 04:20 137 H 39 H 99 01/12/19 04:10 135 H 36 H 104/59 99 01/12/19 04:00 97.3 F L 135 H 35 H 116/59 99 01/12/19 03:50 134 H 39 H 99 01/12/19 03:45 97.3 F L 134 H 39 H 116/59 99 01/12/19 02:10 98 01/12/19 01:36 94.5 F L 113 H 30 H 110/63 100 01/12/19 01:20 110/63 100 01/12/19 00:40 126/69 01/12/19 00:17 92.8 F L 116 H 32 H 139/85 100 01/12/19 00:10 139/85 01/11/19 23:40 137/100 01/11/19 23:10 115/63 100 01/11/19 23:00 107 H 32 H 115/63 100 01/11/19 22:40 110/70 01/11/19 22:38 109 H 26 H 110/70 100 01/11/19 21:30 109/66 01/11/19 21:20 113 H 35 H 110/60 96 01/11/19 21:10 143/114 99 01/11/19 21:00 126/81 98 01/11/19 20:56 112 H 40 H 126/81 100 Intake and Output 01/12/19 01/12/19 01/12/19 06:59 14:59 22:59 Intake Total 934.073 9873.217 250 Output Total 2975 3105 300 Balance -2506.216 1737.217 -50 Intake: IV 4040 250 Cefepime 1 gm In Sodium 100 Chloride 0.9% 50 ml @ 100 mls/hr IVPB Q12HR VEGA Rx #:[id number] Dextrose 5% in Water 1, 400 200 000 ml @ 200 mls/hr IV . Q5H45M VEGA with Sodium Bicarb (1 Meq/ml) 150 ml Rx#:[id number] Dextrose 5% in Water 1, 50 000 ml @ 200 mls/hr IV . Q6H15M VEGA with Sodium Bicarb (1 Meq/ml) 150 ml with Potassium Chloride 20 meq Rx#:[id number] Dextrose 5%-0.45% NaCl 1, 1600 000 ml @ 200 mls/hr IV . Q5H VEGA Rx#:[id number] Dextrose 5%-0.45% NaCl 1, 400 000 ml @ 200 mls/hr IV . Q5H30M VEGA with Sodium Bicarb (1 Meq/ml) 100 ml Rx#:[id number] Potassium Phosphate 10 500 mmol In Sodium Chloride 0 .9% 250 ml @ 125 mls/hr IV Q2H VEGA Rx#:[id number] Sodium Chloride 0.9% 1, 1040 000 ml @ 999 mls/hr IV . Q1H1M ONE Rx#:[id number] Intake, IV Titration 468.784 82.217 Amount Dextrose 5%-0.45% NaCl 1, 150 50 000 ml @ 50 mls/hr IV . Q22H VEGA with Potassium Chloride 20 meq Rx#: [id number] Non-Formulary Drug 1 each 18.784 32.217 In Sodium Chloride 0.9% 100 ml @ Per Protocol IV .Q0M VEGA Rx#:[id number] Sodium Chloride 0.9% 1, 300 000 ml @ 150 mls/hr IV . Q6H40M ONE Rx#:[id number] Output: Urine 2975 2385 300 Other: Voiding Method Indwelling Catheter Indwelling Catheter Indwelling Catheter Weight 69.717 kg Results - Laboratory Findings CBC and BMP: 01/12/19 09:07 01/12/19 11:50 ABG ABG pH 7.15 (7.35-7.45) L* 01/12/19 11:35 ABG pCO2 16 mmHg (35-45) L* 01/12/19 11:35 ABG pO2 95 mmHg (83-108) 01/12/19 11:35 ABG O2 Saturation 98.1 % (94-97) H 01/12/19 11:35 Abnormal lab findings: Abnormal Labs 01/11/19 01/11/19 01/11/19 21:00 21:00 21:00 WBC 37.2 H MCV 104.5 H MCHC 28.4 L Neutrophils # 28.0 H Lymphocytes # 6.3 H Monocytes # 1.7 H Basophils # 0.3 H ABG pH ABG pCO2 ABG pO2 ABG HCO3 ABG Total CO2 ABG O2 Saturation VBG pH VBG pCO2 VBG HCO3 Sodium 148 H Chloride 118 H Carbon Dioxide <5 L* BUN 22 H Glucose 556 H* POC Glucose (mg/dL) Hemoglobin A1c Plasma Lactic Acid Manny 3.2 H* Calcium 7.3 L Phosphorus AST 84 H Alkaline Phosphatase 173 H Ammonia Amylase Lipase Urine Glucose (UA) Urine Ketones Urine Blood Urine Bacteria Urine Mucus 01/11/19 01/11/19 01/11/19 21:00 21:00 21:04 WBC MCV MCHC Neutrophils # Lymphocytes # Monocytes # Basophils # ABG pH ABG pCO2 ABG pO2 ABG HCO3 ABG Total CO2 ABG O2 Saturation VBG pH VBG pCO2 VBG HCO3 Sodium Chloride Carbon Dioxide BUN Glucose POC Glucose (mg/dL) 511 H Hemoglobin A1c 11.0 H Plasma Lactic Acid Manny Calcium Phosphorus AST Alkaline Phosphatase Ammonia 115 H Amylase Lipase Urine Glucose (UA) Urine Ketones Urine Blood Urine Bacteria Urine Mucus 01/11/19 01/11/19 01/12/19 23:10 23:29 00:19 WBC MCV MCHC Neutrophils # Lymphocytes # Monocytes # Basophils # ABG pH <6.80 L* ABG pCO2 <15 L* ABG pO2 148 H ABG HCO3 ABG Total CO2 ABG O2 Saturation 97.9 H VBG pH VBG pCO2 VBG HCO3 Sodium Chloride Carbon Dioxide BUN Glucose POC Glucose (mg/dL) 413 H 345 H Hemoglobin A1c Plasma Lactic Acid Manny Calcium Phosphorus AST Alkaline Phosphatase Ammonia Amylase Lipase Urine Glucose (UA) Urine Ketones Urine Blood Urine Bacteria Urine Mucus 01/12/19 01/12/19 01/12/19 01:10 01:35 02:39 WBC MCV MCHC Neutrophils # Lymphocytes # Monocytes # Basophils # ABG pH ABG pCO2 ABG pO2 ABG HCO3 ABG Total CO2 ABG O2 Saturation VBG pH VBG pCO2 VBG HCO3 Sodium Chloride Carbon Dioxide BUN Glucose POC Glucose (mg/dL) 408 H 330 H 284 H Hemoglobin A1c Plasma Lactic Acid Manny Calcium Phosphorus AST Alkaline Phosphatase Ammonia Amylase Lipase Urine Glucose (UA) Urine Ketones Urine Blood Urine Bacteria Urine Mucus 01/12/19 01/12/19 01/12/19 03:00 03:34 03:34 WBC 29.9 H MCV MCHC 30.8 L Neutrophils # 23.5 H Lymphocytes # Monocytes # 1.3 H Basophils # 0.4 H ABG pH ABG pCO2 ABG pO2 ABG HCO3 ABG Total CO2 ABG O2 Saturation VBG pH 6.84 L* VBG pCO2 24 L VBG HCO3 4 L* Sodium Chloride Carbon Dioxide BUN Glucose POC Glucose (mg/dL) 296 H Hemoglobin A1c Plasma Lactic Acid Manny Calcium Phosphorus AST Alkaline Phosphatase Ammonia Amylase Lipase Urine Glucose (UA) Urine Ketones Urine Blood Urine Bacteria Urine Mucus 01/12/19 01/12/19 01/12/19 03:34 04:00 05:03 WBC MCV MCHC Neutrophils # Lymphocytes # Monocytes # Basophils # ABG pH ABG pCO2 ABG pO2 ABG HCO3 ABG Total CO2 ABG O2 Saturation VBG pH VBG pCO2 VBG HCO3 Sodium 153 H Chloride 122 H Carbon Dioxide <5 L* BUN 20 H Glucose 272 H POC Glucose (mg/dL) 298 H 219 H Hemoglobin A1c Plasma Lactic Acid Manny Calcium Phosphorus AST Alkaline Phosphatase Ammonia Amylase Lipase Urine Glucose (UA) Urine Ketones Urine Blood Urine Bacteria Urine Mucus 01/12/19 01/12/19 01/12/19 05:15 05:25 05:32 WBC MCV MCHC Neutrophils # Lymphocytes # Monocytes # Basophils # ABG pH 7.02 L* ABG pCO2 15 L* ABG pO2 125 H ABG HCO3 ABG Total CO2 ABG O2 Saturation 99.0 H VBG pH VBG pCO2 VBG HCO3 Sodium 152 H Chloride 125 H Carbon Dioxide <5 L* BUN 19 H Glucose 242 H POC Glucose (mg/dL) Hemoglobin A1c Plasma Lactic Acid Manny Calcium Phosphorus 1.6 L AST Alkaline Phosphatase Ammonia Amylase Lipase Urine Glucose (UA) 1+ H Urine Ketones 4+ H Urine Blood Trace H Urine Bacteria Occasional H Urine Mucus Occasional H 01/12/19 01/12/19 01/12/19 05:59 06:54 07:04 WBC MCV MCHC Neutrophils # Lymphocytes # Monocytes # Basophils # ABG pH ABG pCO2 ABG pO2 ABG HCO3 ABG Total CO2 ABG O2 Saturation VBG pH VBG pCO2 VBG HCO3 Sodium Chloride Carbon Dioxide BUN Glucose POC Glucose (mg/dL) 270 H 218 H 227 H Hemoglobin A1c Plasma Lactic Acid Manny Calcium Phosphorus AST Alkaline Phosphatase Ammonia Amylase Lipase Urine Glucose (UA) Urine Ketones Urine Blood Urine Bacteria Urine Mucus 01/12/19 01/12/19 01/12/19 08:17 09:04 09:07 WBC 24.0 H MCV MCHC Neutrophils # Lymphocytes # Monocytes # Basophils # ABG pH ABG pCO2 ABG pO2 ABG HCO3 ABG Total CO2 ABG O2 Saturation VBG pH VBG pCO2 VBG HCO3 Sodium Chloride Carbon Dioxide BUN Glucose POC Glucose (mg/dL) 472 H 233 H Hemoglobin A1c Plasma Lactic Acid Manny Calcium Phosphorus AST Alkaline Phosphatase Ammonia Amylase Lipase Urine Glucose (UA) Urine Ketones Urine Blood Urine Bacteria Urine Mucus 01/12/19 01/12/19 01/12/19 09:46 09:55 10:01 WBC MCV MCHC Neutrophils # Lymphocytes # Monocytes # Basophils # ABG pH 6.98 L* ABG pCO2 <15 L* ABG pO2 119 H ABG HCO3 ABG Total CO2 ABG O2 Saturation 98.4 H VBG pH VBG pCO2 VBG HCO3 Sodium 156 H Chloride 128 H Carbon Dioxide <5 L* BUN 18 H Glucose 261 H POC Glucose (mg/dL) 230 H Hemoglobin A1c Plasma Lactic Acid Manny Calcium 7.8 L Phosphorus AST Alkaline Phosphatase Ammonia Amylase Lipase Urine Glucose (UA) Urine Ketones Urine Blood Urine Bacteria Urine Mucus 01/12/19 01/12/19 01/12/19 11:04 11:35 11:45 WBC MCV MCHC Neutrophils # Lymphocytes # Monocytes # Basophils # ABG pH 7.15 L* ABG pCO2 16 L* ABG pO2 ABG HCO3 6 L* ABG Total CO2 6 L ABG O2 Saturation 98.1 H VBG pH VBG pCO2 VBG HCO3 Sodium Chloride Carbon Dioxide BUN Glucose POC Glucose (mg/dL) 270 H 234 H Hemoglobin A1c Plasma Lactic Acid Manny Calcium Phosphorus AST Alkaline Phosphatase Ammonia Amylase Lipase Urine Glucose (UA) Urine Ketones Urine Blood Urine Bacteria Urine Mucus 01/12/19 01/12/19 01/12/19 11:50 12:53 13:55 WBC MCV MCHC Neutrophils # Lymphocytes # Monocytes # Basophils # ABG pH ABG pCO2 ABG pO2 ABG HCO3 ABG Total CO2 ABG O2 Saturation VBG pH VBG pCO2 VBG HCO3 Sodium 156 H Chloride 126 H Carbon Dioxide 6 L* BUN Glucose POC Glucose (mg/dL) 265 H 237 H Hemoglobin A1c Plasma Lactic Acid Manny Calcium Phosphorus AST Alkaline Phosphatase Ammonia Amylase Lipase Urine Glucose (UA) Urine Ketones Urine Blood Urine Bacteria Urine Mucus 01/12/19 01/12/19 01/12/19 15:02 15:58 16:00 WBC MCV MCHC Neutrophils # Lymphocytes # Monocytes # Basophils # ABG pH ABG pCO2 ABG pO2 ABG HCO3 ABG Total CO2 ABG O2 Saturation VBG pH VBG pCO2 VBG HCO3 Sodium Chloride Carbon Dioxide BUN Glucose POC Glucose (mg/dL) 260 H 205 H Hemoglobin A1c Plasma Lactic Acid Manny Calcium Phosphorus AST Alkaline Phosphatase Ammonia Amylase 453 H* Lipase 435 H Urine Glucose (UA) Urine Ketones Urine Blood Urine Bacteria Urine Mucus Assessment and Plan Plan: This is a joint evaluate was done along with an nurse practitioner. The patient is in severe anion gap metabolic acidosis. The patient had initial pH of less than 7. The patient was given bicarb overnight and 3 additional doses of 50 mEq of sodium bicarbonate was given this morning. Subsequently the patient was switched to a bicarb infusion with D5 water at the rate of 150 mL an hour. Blood sugars under better control. Anion gap is still elevated which is at 24. The serum bicarb is up to 6. Sodium level is at 156. Amylase and lipase levels were slightly elevated. The patient is less tachycardic. She was in significant sinus tachycardia earlier and after obtaining a total of 8-9 L of IV fluids her sinus tachycardia improved and currently her heart is on 110. She is hemodynamically stable. She is producing adequate amount of urine output. Leukocytosis improving. She remains afebrile. She was covered empirically with IV antibiotics. As the day went by, the patient became progressively more res ponsive and alert. She is less tachypneic. She is hemodynamically stable as stated. She is on DVT and GI prophylaxis. We'll her condition is critical. We'll continue to follow. I interviewed the mother. The patient was on long- acting insulin with Lantus and she was being considered for insulin pump. She has history of noncompliance. She has been admitted to [facility] for DKA in the past.
[2019-01-12] MEDS ORDERED: DEXTROSE 5%-0.45% NACL 1,000 ML with SODIUM BICARB (1 MEQ/ML) 100 ML IV SCH ×2 (10:30)
[2019-01-12] MEDS: SODIUM CHLORIDE 0.45% 1,000 ML IV SCH ×2 (10:33→10:45)
[2019-01-12 10:36] LABS: Carbon Dioxide <5 mmol/L (22-30)
[2019-01-12] MEDS: CEFEPIME 1 GM in SODIUM CHLORIDE 0.9% 50 ML IVPB SCH ×2 (11:04→20:50)
[2019-01-12 11:17] LABS: Glucose,Whole Blood 270 mg/dL (75-99)
[2019-01-12 11:38] LABS: ABG Base Excess -23.4 mmol/L; ABG Oxygen Saturation 98.1 % (94-97); ABG PO2 95 mmHg (83-108); ABG TCO2 6 mmol/L (19-24); Allen Test Performed? Yes
[2019-01-12 11:41] LABS: ABG PCO2 16 mmHg (35-45); ABG PH 7.15 (7.35-7.45)
[2019-01-12 11:42] LABS: ABG HCO3 6 mmol/L (21-25)
[2019-01-12 11:53] LABS: Glucose,Whole Blood 234 mg/dL (75-99)
[2019-01-12] MEDS ORDERED: DEXTROSE 5% IN WATER 1,000 ML with SODIUM BICARB (1 MEQ/ML) 150 ML IV SCH (12:00)
[2019-01-12 13:04] LABS: Glucose,Whole Blood 265 mg/dL (75-99)
[2019-01-12 13:12] LABS: Potassium 3.7 mmol/L (3.5-5.1)
[2019-01-12] MEDS ORDERED: MORPHINE SULFATE 2 MG/ML SYRINGE IVP PRN (13:40)
[2019-01-12] MEDS ORDERED: fentaNYL (PF) 50 MCG/ML 2 ML AMP IVP ONE (13:45)
[2019-01-12] MEDS ORDERED: ACETAMINOPHEN IV (For NPO) 1,000 MG in EMPTY BAG 1 BAG IVPB ONE (14:00)
[2019-01-12] MEDS ORDERED: POTASSIUM CHLORIDE 20 MEQ in WATER FOR INJECTION 1 100ML.BAG IVPB STA (14:08)
[2019-01-12] MEDS: PANTOPRAZOLE 40 MG/10 ML VIAL IVP SCH (14:16)
[2019-01-12 14:32] LABS: Glucose,Whole Blood 237 mg/dL (75-99)
[2019-01-12 15:04] LABS: Glucose,Whole Blood 260 mg/dL (75-99)
[2019-01-12 16:02] LABS: Glucose,Whole Blood 205 mg/dL (75-99)
[2019-01-12 16:27] LABS: Amylase 453 U/L (30-110)
[2019-01-12] MEDS: [UNRECOGNIZED DRUG - REMARK] IV SCH (17:08)
[2019-01-12 17:13] LABS: Glucose,Whole Blood 183 mg/dL (75-99)
[2019-01-12 17:23] LABS: African American GFR (CKD) >90 (>60 ml/min/1.73 sqM); Anion Gap 18 mmol/L; Blood Urea Nitrogen 16 mg/dL (7-17); Calcium 7.5 mg/dL (8.4-10.2); Carbon Dioxide 11 mmol/L (22-30); Chloride 123 mmol/L (98-107); Glucose 210 mg/dL (74-99); Potassium 3.1 mmol/L (3.5-5.1); Sodium 152 mmol/L (137-145)
[2019-01-12] MEDS: DEXTROSE 5% IN WATER 1,000 ML with SODIUM BICARB (1 MEQ/ML) 150 ML, POTASSIUM CHLORIDE ... IV SCH ×3 (17:29)
--- NOTE | 2019-01-12 17:57 | P.HPIM ---
History of Present Illness H&P Date: 01/12/19 Chief Complaint: Decreased responsiveness History of presenting complaint: This is a 18-year-old patient of Dr. Richie Blanchard. Most history is obtained from the ER and the mother at the bedside. Patient was diagnosed with diabetes at the age of 1. Had been following with coach mechanic out of [facility]. Patient decided to change coach mechanic and moved locally and now follows with Dr. Yeboah. Patient states stays currently at her mother's sisters place. And she was testing her boyfriend that she not feeling well. When her aunt came back from work she found the patient rather lethargic on the sofa breathing heavily. She did call 911. Patient was taken to [facility] and was found to be in diabetic ketoacidosis severe. Patient was then transferred here to the ER and started on the DKA protocol. Patient was severely acidotic. Because of elevated white count he did have infectious workup to the ER with BACK to be negative. Patient's been having fevers. Was empirically started on cefepime. Patient was then admitted to the ICU. Auto Damage Estimator was also consulted. This morning Dr. Hermelindo Adamson coach mechanic was also consulted. Patient remains on insulin drip and fluids. He is breathing heavily in a [place]maul fashion. Still rather lethargic. Mother the bedside. Patient also received sodium bicarb earlier. Review of systems cannot be done as patient lethargic. Relevant findings as above Past medical history: Diabetes mellitus type 1, GERD, scoliosis, bronchodilators, ADD Social history: Patient smokes cigarettes, this with her mother's sister. Not known to do any recreational drugs. Family history: Reviewed, noncontributory to presentation Physical examination: VITAL SIGNS: 92.8, rectal, 116, 32, 139 with 85, 100% room air upon presentation GENERAL: BMI 29, laying in bed breathing heavy, with acetone breath. EYES: Pupils equal. Conjunctiva normal. HEENT: External appearance of nose and ears normal, oral cavity dry. NECK: JVD unable to assess, mass not palpable. HEART: First and second heart sounds are normal; no edema. LUNGS: Respiratory rate increased; clear to auscultation. ABDOMEN: Soft, nontender, liver spleen not palpable, no masses palpable. PSYCH: Lethargic, not able to assessl. NEUROLOGICAL: Cranial nerves grossly intact; no facial asymmetry, plantars downgoing. LYMPHATICS: No lymph nodes palpable in the axilla and neck INVESTIGATIONS, reviewed in the clinical context: : White count 37.2 hemoglobin 12.9 rate is 365 sodium 148 potassium 5 creatinine 0.9 White count present 5 glucose 556 Initial blood gases show pH was 6.8 Lactic acid 3.2 Urine hCG negative serum acetone positive Computed tomography scan of the brain negative Computed tomography scan of the abdomen-negative EKG tracing-personally reviewed by me shows sinus tachycardia Chest x-ray film personally reviewed by me-lung posey clear UA negative for nitrate leukoesterase Assessment: -Severe diabetic ketoacidosis -Sepsis picture with no source of infection. Computed tomography scan of the abdomen, checks x-ray, UA all negative for infection. Wondered if the fever is from the DKA itself. -Hypothermia initially possibly from DKA -Chronic nicotine dependence patient cigarette smoker -Hypernatremia, from free water deficit -Hypokalemia from insulin Plan: Patient admitted to the ICU. Did discuss with the mother. She understands patient rather ill and critical. Continue to the DQ protocol. Did put in a consult for Dr. Hermelindo Adamson coach mechanic. Did speak to the nurse to contact her to see if she will attend to the patient. Patient empirically on cefepime. ID is also being consulted. Lovenox for DVT prophylaxis. And Protonix for GI prophylaxis Past Medical History Past Medical History: Diabetes Mellitus, GERD/Reflux, Skin Disorder Additional Past Medical History / Comment(s): migraines, psoriasis, was in [facility] 06/2015 with pancreatitis and diabetic ketoacidosis. diabetic since age 1, History of Any Multi-Drug Resistant Organisms: None Reported Past Surgical History: Appendectomy, Cholecystectomy Additional Past Surgical History / Comment(s): EGD, Past Anesthesia/Blood Transfusion Reactions: Motion Sickness, Postoperative Nausea & Vomiting (PONV) Additional Past Anesthesia/Blood Transfusion Reaction / Comment(s): "took her longer to come out". Past Psychological History: ADD/ADHD, Anxiety, PTSD Smoking Status: Light tobacco smoker Past Alcohol Use History: None Reported Past Drug Use History: None Reported - Past Family History Mother Family Medical History: No Reported History Additional Family Medical History / Comment(s): "not in contact with mother" Father History Unknown: Yes Medications and Allergies Home Medications Medication Instructions Recorded Confirmed Type Insulin Aspart [NovoLOG Flexpen] See Protocol SQ ACHS 10/22/18 01/11/19 History Insulin Glargine,Hum.rec.anlog 40 unit SQ HS 10/22/18 01/11/19 History [Lantus Solostar] Allergies Allergy/AdvReac Type Severity Reaction Status Date / Time guanfacine [From Intuniv ER] Allergy Unknown Verified 01/11/19 21:59 insulin lispro [From Humalog] Allergy Anaphylaxis Verified 01/11/19 21:59 insulin regular, human Allergy Dyspnea, Verified 01/11/19 21:59 [From Humulin R] Hives Physical Exam Vitals: Vital Signs Temp Pulse Resp BP Pulse Ox 01/12/19 09:00 147 H 38 H 122/60 100 01/12/19 08:30 144 H 30 H 105/68 100 01/12/19 08:00 147 H 42 H 116/58 100 01/12/19 07:30 98.2 F 147 H 45 H 114/58 99 01/12/19 07:00 99.1 F 147 H 43 H 105/77 99 01/12/19 06:50 147 H 45 H 98 01/12/19 06:40 146 H 45 H 98 01/12/19 06:30 147 H 50 H 98 01/12/19 06:20 146 H 37 H 99 01/12/19 06:10 146 H 43 H 110/53 99 01/12/19 06:00 99.3 F 146 H 37 H 99 01/12/19 05:50 146 H 47 H 99 01/12/19 05:40 144 H 48 H 111/57 99 01/12/19 05:30 144 H 51 H 98 01/12/19 05:20 142 H 45 H 99 01/12/19 05:10 99.1 F 141 H 38 H 108/67 99 01/12/19 05:00 98.2 F 142 H 45 H 100 01/12/19 04:50 141 H 40 H 100 01/12/19 04:40 138 H 34 H 117/56 99 01/12/19 04:30 137 H 39 H 99 01/12/19 04:20 137 H 39 H 99 01/12/19 04:10 135 H 36 H 104/59 99 01/12/19 04:00 97.3 F L 135 H 35 H 116/59 99 01/12/19 03:50 134 H 39 H 99 01/12/19 03:45 97.3 F L 134 H 39 H 116/59 99 01/12/19 02:10 98 01/12/19 01:36 94.5 F L 113 H 30 H 110/63 100 01/12/19 01:20 110/63 100 01/12/19 00:40 126/69 01/12/19 00:17 92.8 F L 116 H 32 H 139/85 100 01/12/19 00:10 139/85 01/11/19 23:40 137/100 01/11/19 23:10 115/63 100 01/11/19 23:00 107 H 32 H 115/63 100 01/11/19 22:40 110/70 01/11/19 22:38 109 H 26 H 110/70 100 01/11/19 21:30 109/66 01/11/19 21:20 113 H 35 H 110/60 96 01/11/19 21:10 143/114 99 01/11/19 21:00 126/81 98 01/11/19 20:56 112 H 40 H 126/81 100 Intake and Output 01/11/19 01/12/19 01/12/19 22:59 06:59 14:59 Intake Total 733.835 7500.467 Output Total 2975 710 Balance -2506.216 874.467 Intake: IV 1525 Dextrose 5%-0.45% NaCl 1, 400 000 ml @ 200 mls/hr IV . Q5H VEGA Rx#:[id number] Potassium Phosphate 10 125 mmol In Sodium Chloride 0 .9% 250 ml @ 125 mls/hr IV Q2H VEGA Rx#:[id number] Sodium Chloride 0.9% 1, 1000 000 ml @ 999 mls/hr IV . Q1H1M ONE Rx#:[id number] Intake, IV Titration 468.784 59.467 Amount Dextrose 5%-0.45% NaCl 1, 150 50 000 ml @ 50 mls/hr IV . Q22H VEGA with Potassium Chloride 20 meq Rx#: [id number] Non-Formulary Drug 1 each 18.784 9.467 In Sodium Chloride 0.9% 100 ml @ Per Protocol IV .Q0M VEGA Rx#:[id number] Sodium Chloride 0.9% 1, 300 000 ml @ 150 mls/hr IV . Q6H40M ONE Rx#:[id number] Output: Urine 2972 710 Other: Voiding Method Indwelling Catheter Weight 69.717 kg Results CBC & Chem 7: 01/12/19 09:07 01/12/19 16:00 Labs: Abnormal Lab Results - Last 24 Hours (Table) 01/11/19 01/11/19 01/11/19 Range/Units 21:00 21:00 21:00 WBC 37.2 H (4.0-11.0) k/uL MCV 104.5 H (80.0-100.0) fL MCHC 28.4 L (31.0-37.0) g/dL Neutrophils # 28.0 H (1.3-7.7) k/uL Lymphocytes # 6.3 H (1.0-4.8) k/uL Monocytes # 1.7 H (0-1.0) k/uL Basophils # 0.3 H (0-0.2) k/uL ABG pH (7.35-7.45) ABG pCO2 (35-45) mmHg ABG pO2 (83-108) mmHg ABG O2 Saturation (94-97) % VBG pH (7.31-7.41) VBG pCO2 (37-51) mmHg VBG HCO3 (24-28) mmol/L Sodium 148 H (137-145) mmol/L Chloride 118 H (98-107) mmol/L Carbon Dioxide <5 L* (22-30) mmol/L BUN 22 H (7-17) mg/dL Glucose 556 H* (74-99) mg/dL POC Glucose (mg/dL) (75-99) mg/dL Hemoglobin A1c (4.0-6.0) % Plasma Lactic Acid Manny 3.2 H* (0.7-2.0) mmol/L Calcium 7.3 L (8.4-10.2) mg/dL Phosphorus (2.5-4.5) mg/dL AST 84 H (14-36) U/L Alkaline Phosphatase 173 H (38-126) U/L Ammonia (<30) umol/L Urine Glucose (UA) (Negative) Urine Ketones (Negative) Urine Blood (Negative) Urine Bacteria (None) /hpf Urine Mucus (None) /hpf 01/11/19 01/11/19 01/11/19 Range/Units 21:00 21:00 21:04 WBC (4.0-11.0) k/uL MCV (80.0-100.0) fL MCHC (31.0-37.0) g/dL Neutrophils # (1.3-7.7) k/uL Lymphocytes # (1.0-4.8) k/uL Monocytes # (0-1.0) k/uL Basophils # (0-0.2) k/uL ABG pH (7.35-7.45) ABG pCO2 (35-45) mmHg ABG pO2 (83-108) mmHg ABG O2 Saturation (94-97) % VBG pH (7.31-7.41) VBG pCO2 (37-51) mmHg VBG HCO3 (24-28) mmol/L Sodium (137-145) mmol/L Chloride (98-107) mmol/L Carbon Dioxide (22-30) mmol/L BUN (7-17) mg/dL Glucose (74-99) mg/dL POC Glucose (mg/dL) 511 H (75-99) mg/dL Hemoglobin A1c 11.0 H (4.0-6.0) % Plasma Lactic Acid Manny (0.7-2.0) mmol/L Calcium (8.4-10.2) mg/dL Phosphorus (2.5-4.5) mg/dL AST (14-36) U/L Alkaline Phosphatase (38-126) U/L Ammonia 115 H (<30) umol/L Urine Glucose (UA) (Negative) Urine Ketones (Negative) Urine Blood (Negative) Urine Bacteria (None) /hpf Urine Mucus (None) /hpf 01/11/19 01/11/19 01/12/19 Range/Units 23:10 23:29 00:19 WBC (4.0-11.0) k/uL MCV (80.0-100.0) fL MCHC (31.0-37.0) g/dL Neutrophils # (1.3-7.7) k/uL Lymphocytes # (1.0-4.8) k/uL Monocytes # (0-1.0) k/uL Basophils # (0-0.2) k/uL ABG pH <6.80 L* (7.35-7.45) ABG pCO2 <15 L* (35-45) mmHg ABG pO2 148 H (83-108) mmHg ABG O2 Saturation 97.9 H (94-97) % VBG pH (7.31-7.41) VBG pCO2 (37-51) mmHg VBG HCO3 (24-28) mmol/L Sodium (137-145) mmol/L Chloride (98-107) mmol/L Carbon Dioxide (22-30) mmol/L BUN (7-17) mg/dL Glucose (74-99) mg/dL POC Glucose (mg/dL) 413 H 345 H (75-99) mg/dL Hemoglobin A1c (4.0-6.0) % Plasma Lactic Acid Manny (0.7-2.0) mmol/L Calcium (8.4-10.2) mg/dL Phosphorus (2.5-4.5) mg/dL AST (14-36) U/L Alkaline Phosphatase (38-126) U/L Ammonia (<30) umol/L Urine Glucose (UA) (Negative) Urine Ketones (Negative) Urine Blood (Negative) Urine Bacteria (None) /hpf Urine Mucus (None) /hpf 01/12/19 01/12/19 01/12/19 Range/Units 01:10 01:35 02:39 WBC (4.0-11.0) k/uL MCV (80.0-100.0) fL MCHC (31.0-37.0) g/dL Neutrophils # (1.3-7.7) k/uL Lymphocytes # (1.0-4.8) k/uL Monocytes # (0-1.0) k/uL Basophils # (0-0.2) k/uL ABG pH (7.35-7.45) ABG pCO2 (35-45) mmHg ABG pO2 (83-108) mmHg ABG O2 Saturation (94-97) % VBG pH (7.31-7.41) VBG pCO2 (37-51) mmHg VBG HCO3 (24-28) mmol/L Sodium (137-145) mmol/L Chloride (98-107) mmol/L Carbon Dioxide (22-30) mmol/L BUN (7-17) mg/dL Glucose (74-99) mg/dL POC Glucose (mg/dL) 408 H 330 H 284 H (75-99) mg/dL Hemoglobin A1c (4.0-6.0) % Plasma Lactic Acid Manny (0.7-2.0) mmol/L Calcium (8.4-10.2) mg/dL Phosphorus (2.5-4.5) mg/dL AST (14-36) U/L Alkaline Phosphatase (38-126) U/L Ammonia (<30) umol/L Urine Glucose (UA) (Negative) Urine Ketones (Negative) Urine Blood (Negative) Urine Bacteria (None) /hpf Urine Mucus (None) /hpf 01/12/19 01/12/19 01/12/19 Range/Units 03:00 03:34 03:34 WBC 29.9 H (4.0-11.0) k/uL MCV (80.0-100.0) fL MCHC 30.8 L (31.0-37.0) g/dL Neutrophils # 23.5 H (1.3-7.7) k/uL Lymphocytes # (1.0-4.8) k/uL Monocytes # 1.3 H (0-1.0) k/uL Basophils # 0.4 H (0-0.2) k/uL ABG pH (7.35-7.45) ABG pCO2 (35-45) mmHg ABG pO2 (83-108) mmHg ABG O2 Saturation (94-97) % VBG pH 6.84 L* (7.31-7.41) VBG pCO2 24 L (37-51) mmHg VBG HCO3 4 L* (24-28) mmol/L Sodium (137-145) mmol/L Chloride (98-107) mmol/L Carbon Dioxide (22-30) mmol/L BUN (7-17) mg/dL Glucose (74-99) mg/dL POC Glucose (mg/dL) 296 H (75-99) mg/dL Hemoglobin A1c (4.0-6.0) % Plasma Lactic Acid Manny (0.7-2.0) mmol/L Calcium (8.4-10.2) mg/dL Phosphorus (2.5-4.5) mg/dL AST (14-36) U/L Alkaline Phosphatase (38-126) U/L Ammonia (<30) umol/L Urine Glucose (UA) (Negative) Urine Ketones (Negative) Urine Blood (Negative) Urine Bacteria (None) /hpf Urine Mucus (None) /hpf 01/12/19 01/12/19 01/12/19 Range/Units 03:34 04:00 05:03 WBC (4.0-11.0) k/uL MCV (80.0-100.0) fL MCHC (31.0-37.0) g/dL Neutrophils # (1.3-7.7) k/uL Lymphocytes # (1.0-4.8) k/uL Monocytes # (0-1.0) k/uL Basophils # (0-0.2) k/uL ABG pH (7.35-7.45) ABG pCO2 (35-45) mmHg ABG pO2 (83-108) mmHg ABG O2 Saturation (94-97) % VBG pH (7.31-7.41) VBG pCO2 (37-51) mmHg VBG HCO3 (24-28) mmol/L Sodium 153 H (137-145) mmol/L Chloride 122 H (98-107) mmol/L Carbon Dioxide <5 L* (22-30) mmol/L BUN 20 H (7-17) mg/dL Glucose 272 H (74-99) mg/dL POC Glucose (mg/dL) 298 H 219 H (75-99) mg/dL Hemoglobin A1c (4.0-6.0) % Plasma Lactic Acid Manny (0.7-2.0) mmol/L Calcium (8.4-10.2) mg/dL Phosphorus (2.5-4.5) mg/dL AST (14-36) U/L Alkaline Phosphatase (38-126) U/L Ammonia (<30) umol/L Urine Glucose (UA) (Negative) Urine Ketones (Negative) Urine Blood (Negative) Urine Bacteria (None) /hpf Urine Mucus (None) /hpf 01/12/19 01/12/19 01/12/19 Range/Units 05:15 05:25 05:32 WBC (4.0-11.0) k/uL MCV (80.0-100.0) fL MCHC (31.0-37.0) g/dL Neutrophils # (1.3-7.7) k/uL Lymphocytes # (1.0-4.8) k/uL Monocytes # (0-1.0) k/uL Basophils # (0-0.2) k/uL ABG pH 7.02 L* (7.35-7.45) ABG pCO2 15 L* (35-45) mmHg ABG pO2 125 H (83-108) mmHg ABG O2 Saturation 99.0 H (94-97) % VBG pH (7.31-7.41) VBG pCO2 (37-51) mmHg VBG HCO3 (24-28) mmol/L Sodium 152 H (137-145) mmol/L Chloride 125 H (98-107) mmol/L Carbon Dioxide <5 L* (22-30) mmol/L BUN 19 H (7-17) mg/dL Glucose 242 H (74-99) mg/dL POC Glucose (mg/dL) (75-99) mg/dL Hemoglobin A1c (4.0-6.0) % Plasma Lactic Acid Manny (0.7-2.0) mmol/L Calcium (8.4-10.2) mg/dL Phosphorus 1.6 L (2.5-4.5) mg/dL AST (14-36) U/L Alkaline Phosphatase (38-126) U/L Ammonia (<30) umol/L Urine Glucose (UA) 1+ H (Negative) Urine Ketones 4+ H (Negative) Urine Blood Trace H (Negative) Urine Bacteria Occasional H (None) /hpf Urine Mucus Occasional H (None) /hpf 01/12/19 01/12/19 01/12/19 Range/Units 05:59 06:54 07:04 WBC (4.0-11.0) k/uL MCV (80.0-100.0) fL MCHC (31.0-37.0) g/dL Neutrophils # (1.3-7.7) k/uL Lymphocytes # (1.0-4.8) k/uL Monocytes # (0-1.0) k/uL Basophils # (0-0.2) k/uL ABG pH (7.35-7.45) ABG pCO2 (35-45) mmHg ABG pO2 (83-108) mmHg ABG O2 Saturation (94-97) % VBG pH (7.31-7.41) VBG pCO2 (37-51) mmHg VBG HCO3 (24-28) mmol/L Sodium (137-145) mmol/L Chloride (98-107) mmol/L Carbon Dioxide (22-30) mmol/L BUN (7-17) mg/dL Glucose (74-99) mg/dL POC Glucose (mg/dL) 270 H 218 H 227 H (75-99) mg/dL Hemoglobin A1c (4.0-6.0) % Plasma Lactic Acid Manny (0.7-2.0) mmol/L Calcium (8.4-10.2) mg/dL Phosphorus (2.5-4.5) mg/dL AST (14-36) U/L Alkaline Phosphatase (38-126) U/L Ammonia (<30) umol/L Urine Glucose (UA) (Negative) Urine Ketones (Negative) Urine Blood (Negative) Urine Bacteria (None) /hpf Urine Mucus (None) /hpf 01/12/19 01/12/19 01/12/19 Range/Units 08:17 09:04 09:07 WBC 24.0 H (4.0-11.0) k/uL MCV (80.0-100.0) fL MCHC (31.0-37.0) g/dL Neutrophils # (1.3-7.7) k/uL Lymphocytes # (1.0-4.8) k/uL Monocytes # (0-1.0) k/uL Basophils # (0-0.2) k/uL ABG pH (7.35-7.45) ABG pCO2 (35-45) mmHg ABG pO2 (83-108) mmHg ABG O2 Saturation (94-97) % VBG pH (7.31-7.41) VBG pCO2 (37-51) mmHg VBG HCO3 (24-28) mmol/L Sodium (137-145) mmol/L Chloride (98-107) mmol/L Carbon Dioxide (22-30) mmol/L BUN (7-17) mg/dL Glucose (74-99) mg/dL POC Glucose (mg/dL) 472 H 233 H (75-99) mg/dL Hemoglobin A1c (4.0-6.0) % Plasma Lactic Acid Manny (0.7-2.0) mmol/L Calcium (8.4-10.2) mg/dL Phosphorus (2.5-4.5) mg/dL AST (14-36) U/L Alkaline Phosphatase (38-126) U/L Ammonia (<30) umol/L Urine Glucose (UA) (Negative) Urine Ketones (Negative) Urine Blood (Negative) Urine Bacteria (None) /hpf Urine Mucus (None) /hpf 01/12/19 01/12/19 Range/Units 09:46 09:55 WBC (4.0-11.0) k/uL MCV (80.0-100.0) fL MCHC (31.0-37.0) g/dL Neutrophils # (1.3-7.7) k/uL Lymphocytes # (1.0-4.8) k/uL Monocytes # (0-1.0) k/uL Basophils # (0-0.2) k/uL ABG pH 6.98 L* (7.35-7.45) ABG pCO2 <15 L* (35-45) mmHg ABG pO2 119 H (83-108) mmHg ABG O2 Saturation 98.4 H (94-97) % VBG pH (7.31-7.41) VBG pCO2 (37-51) mmHg VBG HCO3 (24-28) mmol/L Sodium (137-145) mmol/L Chloride (98-107) mmol/L Carbon Dioxide (22-30) mmol/L BUN (7-17) mg/dL Glucose (74-99) mg/dL POC Glucose (mg/dL) 230 H (75-99) mg/dL Hemoglobin A1c (4.0-6.0) % Plasma Lactic Acid Manny (0.7-2.0) mmol/L Calcium (8.4-10.2) mg/dL Phosphorus (2.5-4.5) mg/dL AST (14-36) U/L Alkaline Phosphatase (38-126) U/L Ammonia (<30) umol/L Urine Glucose (UA) (Negative) Urine Ketones (Negative) Urine Blood (Negative) Urine Bacteria (None) /hpf Urine Mucus (None) /hpf
[2019-01-12 18:03] LABS: Glucose,Whole Blood 190 mg/dL (75-99)
[2019-01-12] MEDS: POTASSIUM CHLORIDE 20 MEQ in WATER FOR INJECTION 1 100ML.BAG IVPB SCH ×2 (18:06→20:50)
[2019-01-12] MEDS: NICOTINE 21MG/24HR PATCH TRANSDERM SCH (18:12)
[2019-01-12 18:52] LABS: Glucose,Whole Blood 179 mg/dL (75-99)
[2019-01-12 20:05] LABS: Glucose,Whole Blood 169 mg/dL (75-99)
[2019-01-12 21:11] LABS: Glucose,Whole Blood 185 mg/dL (75-99)
[2019-01-12 22:11] LABS: Glucose,Whole Blood 234 mg/dL (75-99)
--- NOTE | 2019-01-12 22:47 | P.CONS ---
History of Present Illness - Reason for Consult Consult date: 01/12/19 - Chief Complaint altered mental status - History of Present Illness 18-year-old female presents to emergency center as a transfer from a local hospital. 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 She's had several bouts of diabetic ketoacidosis as per her mother who is at her bedside. The mother relates that the daughter has repelled and is now living with the patient's aunt and this is resulted in less than ideal control of her blood sugar. She's had a few infections and urinary tract infections but has had several bouts of DKA because of noncompliance. It is related that the aunt arrived home the patient was not feeling well and had nausea and abdominal pain multiple bouts of nausea and emesis. She was agitated, not acting right and breathing very fast and constantly she was transported to the local emergency center. With evidence of DKA in need for ICU care she was transferred to our facility. The patient is a insulin drip has had very slow improvement with ongoing acidosis although some improvement of that it still remains acetone positive at this time. The mother believes that she was ill for more than a day in the home setting before EMS was contacted. The mother relates that her current mentation is not concerning to her given the DKA. This type of mentation is very common for her when she has DKA. The nursing staff relate that her mentation is definitely improved throughout the day. The patient does have some minimal interactions at this time because her mother "mom" and did say hi on one event.Admission the patient had hypothermia with a temperature 92.8 and 3 hours workup to a relatively normal temperature. She has had a T-max 100.8 last 24 hours. There is also leukocytosis for which the consult has been requested. Review of Systems ROS unobtainable: due to mental status (The mother is clear that when the patient has DKA she has a altered mentation where she is agitated and crying out and screaming and pushing at caregivers. Mother relates she usually stays with her to try to calm her down.) Past Medical History Past Medical History: Diabetes Mellitus, GERD/Reflux, Skin Disorder Additional Past Medical History / Comment(s): migraines, psoriasis, was in [facility] 06/2015 with pancreatitis and diabetic ketoacidosis. diabetic since age 1, History of Any Multi-Drug Resistant Organisms: None Reported Past Surgical History: Appendectomy, Cholecystectomy Additional Past Surgical History / Comment(s): EGD, Past Anesthesia/Blood Transfusion Reactions: Motion Sickness, Postoperative Nausea & Vomiting (PONV) Additional Past Anesthesia/Blood Transfusion Reaction / Comm: "took her longer to come out". Past Psychological History: ADD/ADHD, Anxiety, PTSD Additional Psychological History / Comment(s): Recently stopped them with her mother is living with her aunt which was a major change of her home situation and his resulting bouts of DKA. No travel. Mother does not believe she smoker. Her test was negative. Mother does not believe she uses recreational drugs Smoking Status: Light tobacco smoker Past Alcohol Use History: None Reported Past Drug Use History: None Reported - Past Family History Mother Family Medical History: No Reported History Additional Family Medical History / Comment(s): "not in contact with mother" Father History Unknown: Yes Medications and Allergies Home Medications and Allergies Comment(s): Current Medications Enoxaparin Sodium (Lovenox) 40 mg SQ DAILY [facility] Last Admin: 01/12/19 08:22 Dose: 40 mg Documented by: Non-Form. (Novolog Insulin 100 Units) In Sodium Chloride 0 .9% 100 Ml 101 mls @ 0 mls/hr IV .Q0M [facility]; Protocol Last Admin: 01/12/19 17:08 Dose: 6 ml/hr, 6 mls/hr Documented by: Sodium Bicarbonate 150 ml/Potassium Chloride 20 meq/Dextrose/Water 1,250 mls @ 200 mls/hr IV .Q6H15M [facility] Last Admin: 01/12/19 17:29 Dose: 200 mls/hr Documented by: Potassium Chloride 20 meq/ IV (Solution) 100 mls @ 50 mls/hr IVPB Q2H [facility] Stop: 01/12/19 21:59 Last Admin: 01/12/19 20:50 Dose: 50 mls/hr Documented by: Piperacillin Sod/Tazobactam (Sod 3.375 gm/ Sodium Chloride) 100 mls @ 25 mls/hr IVPB Q8H [facility] Miscellaneous Information (Magnesium Per Protocol) 1 each MISCELLANE DAILY PRN; Protocol PRN Reason: Per Protocol Miscellaneous Information (Potassium Per Protocol) 1 each MISCELLANE DAILY PRN PRN Reason: Per Protocol Miscellaneous Information (Phosphorus Per Protocol) 1 each MISCELLANE DAILY PRN; Protocol PRN Reason: Per Protocol Morphine Sulfate (Morphine Sulfate (Inj)) 1 mg IVP ONCE PRN PRN Reason: Pain/Discomfort Nicotine (Habitrol 21mg/24hr Patch) 1 patch TRANSDERM DAILY [facility] Last Admin: 01/12/19 18:12 Dose: 1 patch Documented by: Pantoprazole Sodium (Protonix) 40 mg IVP DAILY [facility] Last Admin: 01/12/19 14:16 Dose: 40 mg Documented by: Home Medications Medication Instructions Recorded Confirmed Type Insulin Aspart [NovoLOG Flexpen] See Protocol SQ ACHS 10/22/18 01/11/19 History Insulin Glargine,Hum.rec.anlog 40 unit SQ HS 10/22/18 01/11/19 History [Lantus Solostar] Allergies Allergy/AdvReac Type Severity Reaction Status Date / Time guanfacine [From Intuniv ER] Allergy Unknown Verified 01/11/19 21:59 insulin lispro [From Humalog] Allergy Anaphylaxis Verified 01/11/19 21:59 insulin regular, human Allergy Dyspnea, Verified 01/11/19 21:59 [From Humulin R] Hives Physical Exam Vitals: Vital Signs Temp Pulse Resp BP Pulse Ox 01/12/19 19:00 100.6 F H 115 H 17 88/67 100 01/12/19 18:30 112 H 27 H 95/50 99 01/12/19 18:00 100.0 F H 114 H 23 91/52 99 01/12/19 17:30 112 H 23 96/55 98 01/12/19 17:00 99.9 F H 114 H 25 H 91/54 99 01/12/19 16:30 114 H 25 H 93/52 97 01/12/19 16:00 99.9 F H 117 H 24 99/48 98 01/12/19 15:30 116 H 23 93/53 99 01/12/19 15:08 29 H 01/12/19 15:00 100.6 F H 120 H 29 H 101/59 98 01/12/19 14:30 129 H 34 H 108/68 99 01/12/19 14:00 100.8 F H 126 H 43 H 121/58 100 01/12/19 13:30 100.8 F H 131 H 44 H 104/72 100 01/12/19 13:00 100.2 F H 128 H 35 H 105/68 100 01/12/19 12:30 130 H 34 H 108/57 100 01/12/19 12:00 99.9 F H 131 H 31 H 105/76 100 01/12/19 11:30 140 H 39 H 107/71 99 01/12/19 11:23 33 H 01/12/19 11:00 99.1 F 135 H 33 H 109/68 99 01/12/19 10:30 142 H 42 H 112/61 100 01/12/19 10:00 142 H 45 H 114/59 100 01/12/19 09:30 142 H 45 H 100/73 99 01/12/19 09:00 147 H 38 H 122/60 100 01/12/19 08:30 144 H 30 H 105/68 100 01/12/19 08:00 147 H 42 H 116/58 100 01/12/19 07:30 98.2 F 147 H 45 H 114/58 99 01/12/19 07:00 99.1 F 147 H 43 H 105/77 99 01/12/19 06:50 147 H 45 H 98 01/12/19 06:40 146 H 45 H 98 01/12/19 06:30 147 H 50 H 98 01/12/19 06:20 146 H 37 H 99 01/12/19 06:10 146 H 43 H 110/53 99 01/12/19 06:00 99.3 F 146 H 37 H 99 01/12/19 05:50 146 H 47 H 99 01/12/19 05:40 144 H 48 H 111/57 99 01/12/19 05:30 144 H 51 H 98 01/12/19 05:20 142 H 45 H 99 01/12/19 05:10 99.1 F 141 H 38 H 108/67 99 01/12/19 05:00 98.2 F 142 H 45 H 100 01/12/19 04:50 141 H 40 H 100 01/12/19 04:40 138 H 34 H 117/56 99 01/12/19 04:30 137 H 39 H 99 01/12/19 04:20 137 H 39 H 99 01/12/19 04:10 135 H 36 H 104/59 99 01/12/19 04:00 97.3 F L 135 H 35 H 116/59 99 01/12/19 03:50 134 H 39 H 99 01/12/19 03:45 97.3 F L 134 H 39 H 116/59 99 01/12/19 02:10 98 01/12/19 01:36 94.5 F L 113 H 30 H 110/63 100 01/12/19 01:20 110/63 100 01/12/19 00:40 126/69 01/12/19 00:17 92.8 F L 116 H 32 H 139/85 100 01/12/19 00:10 139/85 01/11/19 23:40 137/100 01/11/19 23:10 115/63 100 01/11/19 23:00 107 H 32 H 115/63 100 01/11/19 22:40 110/70 01/11/19 22:38 109 H 26 H 110/70 100 Intake and Output 01/12/19 01/12/19 01/12/19 06:59 14:59 22:59 Intake Total 928.039 8799.217 1715.3 Output Total 2975 2385 835 Balance -2506.216 1737.217 880.3 Intake: IV 4040 1690 Cefepime 1 gm In Sodium 100 50 Chloride 0.9% 50 ml @ 100 mls/hr IVPB Q12HR [facility] Rx #:[id number] Dextrose 5% in Water 1, 400 200 000 ml @ 200 mls/hr IV . Q5H45M [facility] with Sodium Bicarb (1 Meq/ml) 150 ml Rx#:[id number] Dextrose 5% in Water 1, 1250 000 ml @ 200 mls/hr IV . Q6H15M [facility] with Sodium Bicarb (1 Meq/ml) 150 ml with Potassium Chloride 20 meq Rx#:[id number] Dextrose 5%-0.45% NaCl 1, 1600 000 ml @ 200 mls/hr IV . Q5H [facility] Rx#:[id number] Dextrose 5%-0.45% NaCl 1, 400 000 ml @ 200 mls/hr IV . Q5H30M [facility] with Sodium Bicarb (1 Meq/ml) 100 ml Rx#:[id number] Potassium Chloride 20 meq 150 In Water For Injection 1 100ml.bag @ 50 mls/hr IVPB ONCE STA Rx#: [id number] Potassium Phosphate 10 500 mmol In Sodium Chloride 0 .9% 250 ml @ 125 mls/hr IV Q2H [facility] Rx#:[id number] Sodium Chloride 0.9% 1, 1040 40 000 ml @ 999 mls/hr IV . Q1H1M ONE Rx#:[id number] Intake, IV Titration 468.784 82.217 25.3 Amount Dextrose 5%-0.45% NaCl 1, 150 50 000 ml @ 50 mls/hr IV . Q22H [facility] with Potassium Chloride 20 meq Rx#: [id number] Non-Formulary Drug 1 each 18.784 32.217 25.3 In Sodium Chloride 0.9% 100 ml @ Per Protocol IV .Q0M [facility] Rx#:[id number] Sodium Chloride 0.9% 1, 300 000 ml @ 150 mls/hr IV . Q6H40M ONE Rx#:[id number] Output: Urine 2975 2385 835 Other: Voiding Method Indwelling Catheter Indwelling Catheter Indwelling Catheter Weight 69.717 kg HEENT: Anicteric conjunctiva are pink and moist nasal mucosa grossly intact without significant lesions, there is no thrush. Dentition is poor for age oral cavity is dry Neck: The neck is supple without significant lymphadenopathy or thyromegaly. Lungs: Good bilateral air entry without significant crackles or wheezing. There is no significant bronchial sounds. There is no egophony or dullness. Heart: Regular rate and rhythm with an audible S1-S2, no S3 no S4. There is no significant murmur click or rub, PMI was nondisplaced. Abdomen: Bowel sounds are heard the abdomen though has diffuse generalized tenderness. There is no palpable mass. There was no guarding or rebound the patient does cry out in pain when her abdomen is evaluated. There was no flank tenderness in no bruising to the abdominal wall Extremities: The upper extremities have excellent pulses they are symmetric, no significant petechiae or telangiectasia. No splinter hemorrhages were noted. The lower extremities are free from significant edema. The peripheral pulses were 2+ and symmetric. Neuro: The patient is awake she is able to take a moistened oral care swab in her mouth and moistened it, she looks to the observer, she whimpers and cries like a child. She moves upper and lower extremities spontaneously Results CBC & Chem 7: 01/12/19 09:07 01/12/19 16:00 Labs: Abnormal Lab Results - Last 24 Hours (Table) 01/11/19 01/11/19 01/11/19 Range/Units 21:00 21:00 21:00 WBC (4.0-11.0) k/uL MCHC (31.0-37.0) g/dL Neutrophils # (1.3-7.7) k/uL Monocytes # (0-1.0) k/uL Basophils # (0-0.2) k/uL ABG pH (7.35-7.45) ABG pCO2 (35-45) mmHg ABG pO2 (83-108) mmHg ABG HCO3 (21-25) mmol/L ABG Total CO2 (19-24) mmol/L ABG O2 Saturation (94-97) % VBG pH (7.31-7.41) VBG pCO2 (37-51) mmHg VBG HCO3 (24-28) mmol/L Sodium 148 H (137-145) mmol/L Potassium (3.5-5.1) mmol/L Chloride 118 H (98-107) mmol/L Carbon Dioxide <5 L* (22-30) mmol/L BUN 22 H (7-17) mg/dL Glucose 556 H* (74-99) mg/dL POC Glucose (mg/dL) (75-99) mg/dL Hemoglobin A1c 11.0 H (4.0-6.0) % Plasma Lactic Acid Manny 3.2 H* (0.7-2.0) mmol/L Calcium 7.3 L (8.4-10.2) mg/dL Phosphorus (2.5-4.5) mg/dL AST 84 H (14-36) U/L Alkaline Phosphatase 173 H (38-126) U/L Ammonia (<30) umol/L Amylase (30-110) U/L Lipase (23-300) U/L Urine Glucose (UA) (Negative) Urine Ketones (Negative) Urine Blood (Negative) Urine Bacteria (None) /hpf Urine Mucus (None) /hpf 01/11/19 01/11/19 01/11/19 Range/Units 21:00 23:10 23:29 WBC (4.0-11.0) k/uL MCHC (31.0-37.0) g/dL Neutrophils # (1.3-7.7) k/uL Monocytes # (0-1.0) k/uL Basophils # (0-0.2) k/uL ABG pH <6.80 L* (7.35-7.45) ABG pCO2 <15 L* (35-45) mmHg ABG pO2 148 H (83-108) mmHg ABG HCO3 (21-25) mmol/L ABG Total CO2 (19-24) mmol/L ABG O2 Saturation 97.9 H (94-97) % VBG pH (7.31-7.41) VBG pCO2 (37-51) mmHg VBG HCO3 (24-28) mmol/L Sodium (137-145) mmol/L Potassium (3.5-5.1) mmol/L Chloride (98-107) mmol/L Carbon Dioxide (22-30) mmol/L BUN (7-17) mg/dL Glucose (74-99) mg/dL POC Glucose (mg/dL) 413 H (75-99) mg/dL Hemoglobin A1c (4.0-6.0) % Plasma Lactic Acid Manny (0.7-2.0) mmol/L Calcium (8.4-10.2) mg/dL Phosphorus (2.5-4.5) mg/dL AST (14-36) U/L Alkaline Phosphatase (38-126) U/L Ammonia 115 H (<30) umol/L Amylase (30-110) U/L Lipase (23-300) U/L Urine Glucose (UA) (Negative) Urine Ketones (Negative) Urine Blood (Negative) Urine Bacteria (None) /hpf Urine Mucus (None) /hpf 01/12/19 01/12/19 01/12/19 Range/Units 00:19 01:10 01:35 WBC (4.0-11.0) k/uL MCHC (31.0-37.0) g/dL Neutrophils # (1.3-7.7) k/uL Monocytes # (0-1.0) k/uL Basophils # (0-0.2) k/uL ABG pH (7.35-7.45) ABG pCO2 (35-45) mmHg ABG pO2 (83-108) mmHg ABG HCO3 (21-25) mmol/L ABG Total CO2 (19-24) mmol/L ABG O2 Saturation (94-97) % VBG pH (7.31-7.41) VBG pCO2 (37-51) mmHg VBG HCO3 (24-28) mmol/L Sodium (137-145) mmol/L Potassium (3.5-5.1) mmol/L Chloride (98-107) mmol/L Carbon Dioxide (22-30) mmol/L BUN (7-17) mg/dL Glucose (74-99) mg/dL POC Glucose (mg/dL) 345 H 408 H 330 H (75-99) mg/dL Hemoglobin A1c (4.0-6.0) % Plasma Lactic Acid Manny (0.7-2.0) mmol/L Calcium (8.4-10.2) mg/dL Phosphorus (2.5-4.5) mg/dL AST (14-36) U/L Alkaline Phosphatase (38-126) U/L Ammonia (<30) umol/L Amylase (30-110) U/L Lipase (23-300) U/L Urine Glucose (UA) (Negative) Urine Ketones (Negative) Urine Blood (Negative) Urine Bacteria (None) /hpf Urine Mucus (None) /hpf 01/12/19 01/12/19 01/12/19 Range/Units 02:39 03:00 03:34 WBC 29.9 H (4.0-11.0) k/uL MCHC 30.8 L (31.0-37.0) g/dL Neutrophils # 23.5 H (1.3-7.7) k/uL Monocytes # 1.3 H (0-1.0) k/uL Basophils # 0.4 H (0-0.2) k/uL ABG pH (7.35-7.45) ABG pCO2 (35-45) mmHg ABG pO2 (83-108) mmHg ABG HCO3 (21-25) mmol/L ABG Total CO2 (19-24) mmol/L ABG O2 Saturation (94-97) % VBG pH (7.31-7.41) VBG pCO2 (37-51) mmHg VBG HCO3 (24-28) mmol/L Sodium (137-145) mmol/L Potassium (3.5-5.1) mmol/L Chloride (98-107) mmol/L Carbon Dioxide (22-30) mmol/L BUN (7-17) mg/dL Glucose (74-99) mg/dL POC Glucose (mg/dL) 284 H 296 H (75-99) mg/dL Hemoglobin A1c (4.0-6.0) % Plasma Lactic Acid Manny (0.7-2.0) mmol/L Calcium (8.4-10.2) mg/dL Phosphorus (2.5-4.5) mg/dL AST (14-36) U/L Alkaline Phosphatase (38-126) U/L Ammonia (<30) umol/L Amylase (30-110) U/L Lipase (23-300) U/L Urine Glucose (UA) (Negative) Urine Ketones (Negative) Urine Blood (Negative) Urine Bacteria (None) /hpf Urine Mucus (None) /hpf 01/12/19 01/12/19 01/12/19 Range/Units 03:34 03:34 04:00 WBC (4.0-11.0) k/uL MCHC (31.0-37.0) g/dL Neutrophils # (1.3-7.7) k/uL Monocytes # (0-1.0) k/uL Basophils # (0-0.2) k/uL ABG pH (7.35-7.45) ABG pCO2 (35-45) mmHg ABG pO2 (83-108) mmHg ABG HCO3 (21-25) mmol/L ABG Total CO2 (19-24) mmol/L ABG O2 Saturation (94-97) % VBG pH 6.84 L* (7.31-7.41) VBG pCO2 24 L (37-51) mmHg VBG HCO3 4 L* (24-28) mmol/L Sodium 153 H (137-145) mmol/L Potassium (3.5-5.1) mmol/L Chloride 122 H (98-107) mmol/L Carbon Dioxide <5 L* (22-30) mmol/L BUN 20 H (7-17) mg/dL Glucose 272 H (74-99) mg/dL POC Glucose (mg/dL) 298 H (75-99) mg/dL Hemoglobin A1c (4.0-6.0) % Plasma Lactic Acid Manny (0.7-2.0) mmol/L Calcium (8.4-10.2) mg/dL Phosphorus (2.5-4.5) mg/dL AST (14-36) U/L Alkaline Phosphatase (38-126) U/L Ammonia (<30) umol/L Amylase (30-110) U/L Lipase (23-300) U/L Urine Glucose (UA) (Negative) Urine Ketones (Negative) Urine Blood (Negative) Urine Bacteria (None) /hpf Urine Mucus (None) /hpf 01/12/19 01/12/19 01/12/19 Range/Units 05:03 05:15 05:25 WBC (4.0-11.0) k/uL MCHC (31.0-37.0) g/dL Neutrophils # (1.3-7.7) k/uL Monocytes # (0-1.0) k/uL Basophils # (0-0.2) k/uL ABG pH (7.35-7.45) ABG pCO2 (35-45) mmHg ABG pO2 (83-108) mmHg ABG HCO3 (21-25) mmol/L ABG Total CO2 (19-24) mmol/L ABG O2 Saturation (94-97) % VBG pH (7.31-7.41) VBG pCO2 (37-51) mmHg VBG HCO3 (24-28) mmol/L Sodium 152 H (137-145) mmol/L Potassium (3.5-5.1) mmol/L Chloride 125 H (98-107) mmol/L Carbon Dioxide <5 L* (22-30) mmol/L BUN 19 H (7-17) mg/dL Glucose 242 H (74-99) mg/dL POC Glucose (mg/dL) 219 H (75-99) mg/dL Hemoglobin A1c (4.0-6.0) % Plasma Lactic Acid Manny (0.7-2.0) mmol/L Calcium (8.4-10.2) mg/dL Phosphorus 1.6 L (2.5-4.5) mg/dL AST (14-36) U/L Alkaline Phosphatase (38-126) U/L Ammonia (<30) umol/L Amylase (30-110) U/L Lipase (23-300) U/L Urine Glucose (UA) 1+ H (Negative) Urine Ketones 4+ H (Negative) Urine Blood Trace H (Negative) Urine Bacteria Occasional H (None) /hpf Urine Mucus Occasional H (None) /hpf 01/12/19 01/12/19 01/12/19 Range/Units 05:32 05:59 06:54 WBC (4.0-11.0) k/uL MCHC (31.0-37.0) g/dL Neutrophils # (1.3-7.7) k/uL Monocytes # (0-1.0) k/uL Basophils # (0-0.2) k/uL ABG pH 7.02 L* (7.35-7.45) ABG pCO2 15 L* (35-45) mmHg ABG pO2 125 H (83-108) mmHg ABG HCO3 (21-25) mmol/L ABG Total CO2 (19-24) mmol/L ABG O2 Saturation 99.0 H (94-97) % VBG pH (7.31-7.41) VBG pCO2 (37-51) mmHg VBG HCO3 (24-28) mmol/L Sodium (137-145) mmol/L Potassium (3.5-5.1) mmol/L Chloride (98-107) mmol/L Carbon Dioxide (22-30) mmol/L BUN (7-17) mg/dL Glucose (74-99) mg/dL POC Glucose (mg/dL) 270 H 218 H (75-99) mg/dL Hemoglobin A1c (4.0-6.0) % Plasma Lactic Acid Manny (0.7-2.0) mmol/L Calcium (8.4-10.2) mg/dL Phosphorus (2.5-4.5) mg/dL AST (14-36) U/L Alkaline Phosphatase (38-126) U/L Ammonia (<30) umol/L Amylase (30-110) U/L Lipase (23-300) U/L Urine Glucose (UA) (Negative) Urine Ketones (Negative) Urine Blood (Negative) Urine Bacteria (None) /hpf Urine Mucus (None) /hpf 01/12/19 01/12/19 01/12/19 Range/Units 07:04 08:17 09:04 WBC (4.0-11.0) k/uL MCHC (31.0-37.0) g/dL Neutrophils # (1.3-7.7) k/uL Monocytes # (0-1.0) k/uL Basophils # (0-0.2) k/uL ABG pH (7.35-7.45) ABG pCO2 (35-45) mmHg ABG pO2 (83-108) mmHg ABG HCO3 (21-25) mmol/L ABG Total CO2 (19-24) mmol/L ABG O2 Saturation (94-97) % VBG pH (7.31-7.41) VBG pCO2 (37-51) mmHg VBG HCO3 (24-28) mmol/L Sodium (137-145) mmol/L Potassium (3.5-5.1) mmol/L Chloride (98-107) mmol/L Carbon Dioxide (22-30) mmol/L BUN (7-17) mg/dL Glucose (74-99) mg/dL POC Glucose (mg/dL) 227 H 472 H 233 H (75-99) mg/dL Hemoglobin A1c (4.0-6.0) % Plasma Lactic Acid Manny (0.7-2.0) mmol/L Calcium (8.4-10.2) mg/dL Phosphorus (2.5-4.5) mg/dL AST (14-36) U/L Alkaline Phosphatase (38-126) U/L Ammonia (<30) umol/L Amylase (30-110) U/L Lipase (23-300) U/L Urine Glucose (UA) (Negative) Urine Ketones (Negative) Urine Blood (Negative) Urine Bacteria (None) /hpf Urine Mucus (None) /hpf 01/12/19 01/12/19 01/12/19 Range/Units 09:07 09:46 09:55 WBC 24.0 H (4.0-11.0) k/uL MCHC (31.0-37.0) g/dL Neutrophils # (1.3-7.7) k/uL Monocytes # (0-1.0) k/uL Basophils # (0-0.2) k/uL ABG pH 6.98 L* (7.35-7.45) ABG pCO2 <15 L* (35-45) mmHg ABG pO2 119 H (83-108) mmHg ABG HCO3 (21-25) mmol/L ABG Total CO2 (19-24) mmol/L ABG O2 Saturation 98.4 H (94-97) % VBG pH (7.31-7.41) VBG pCO2 (37-51) mmHg VBG HCO3 (24-28) mmol/L Sodium (137-145) mmol/L Potassium (3.5-5.1) mmol/L Chloride (98-107) mmol/L Carbon Dioxide (22-30) mmol/L BUN (7-17) mg/dL Glucose (74-99) mg/dL POC Glucose (mg/dL) 230 H (75-99) mg/dL Hemoglobin A1c (4.0-6.0) % Plasma Lactic Acid Manny (0.7-2.0) mmol/L Calcium (8.4-10.2) mg/dL Phosphorus (2.5-4.5) mg/dL AST (14-36) U/L Alkaline Phosphatase (38-126) U/L Ammonia (<30) umol/L Amylase (30-110) U/L Lipase (23-300) U/L Urine Glucose (UA) (Negative) Urine Ketones (Negative) Urine Blood (Negative) Urine Bacteria (None) /hpf Urine Mucus (None) /hpf 01/12/19 01/12/19 01/12/19 Range/Units 10:01 11:04 11:35 WBC (4.0-11.0) k/uL MCHC (31.0-37.0) g/dL Neutrophils # (1.3-7.7) k/uL Monocytes # (0-1.0) k/uL Basophils # (0-0.2) k/uL ABG pH 7.15 L* (7.35-7.45) ABG pCO2 16 L* (35-45) mmHg ABG pO2 (83-108) mmHg ABG HCO3 6 L* (21-25) mmol/L ABG Total CO2 6 L (19-24) mmol/L ABG O2 Saturation 98.1 H (94-97) % VBG pH (7.31-7.41) VBG pCO2 (37-51) mmHg VBG HCO3 (24-28) mmol/L Sodium 156 H (137-145) mmol/L Potassium (3.5-5.1) mmol/L Chloride 128 H (98-107) mmol/L Carbon Dioxide <5 L* (22-30) mmol/L BUN 18 H (7-17) mg/dL Glucose 261 H (74-99) mg/dL POC Glucose (mg/dL) 270 H (75-99) mg/dL Hemoglobin A1c (4.0-6.0) % Plasma Lactic Acid Manny (0.7-2.0) mmol/L Calcium 7.8 L (8.4-10.2) mg/dL Phosphorus (2.5-4.5) mg/dL AST (14-36) U/L Alkaline Phosphatase (38-126) U/L Ammonia (<30) umol/L Amylase (30-110) U/L Lipase (23-300) U/L Urine Glucose (UA) (Negative) Urine Ketones (Negative) Urine Blood (Negative) Urine Bacteria (None) /hpf Urine Mucus (None) /hpf 01/12/19 01/12/19 01/12/19 Range/Units 11:45 11:50 12:53 WBC (4.0-11.0) k/uL MCHC (31.0-37.0) g/dL Neutrophils # (1.3-7.7) k/uL Monocytes # (0-1.0) k/uL Basophils # (0-0.2) k/uL ABG pH (7.35-7.45) ABG pCO2 (35-45) mmHg ABG pO2 (83-108) mmHg ABG HCO3 (21-25) mmol/L ABG Total CO2 (19-24) mmol/L ABG O2 Saturation (94-97) % VBG pH (7.31-7.41) VBG pCO2 (37-51) mmHg VBG HCO3 (24-28) mmol/L Sodium 156 H (137-145) mmol/L Potassium (3.5-5.1) mmol/L Chloride 126 H (98-107) mmol/L Carbon Dioxide 6 L* (22-30) mmol/L BUN (7-17) mg/dL Glucose (74-99) mg/dL POC Glucose (mg/dL) 234 H 265 H (75-99) mg/dL Hemoglobin A1c (4.0-6.0) % Plasma Lactic Acid Manny (0.7-2.0) mmol/L Calcium (8.4-10.2) mg/dL Phosphorus (2.5-4.5) mg/dL AST (14-36) U/L Alkaline Phosphatase (38-126) U/L Ammonia (<30) umol/L Amylase (30-110) U/L Lipase (23-300) U/L Urine Glucose (UA) (Negative) Urine Ketones (Negative) Urine Blood (Negative) Urine Bacteria (None) /hpf Urine Mucus (None) /hpf 01/12/19 01/12/19 01/12/19 Range/Units 13:55 15:02 15:58 WBC (4.0-11.0) k/uL MCHC (31.0-37.0) g/dL Neutrophils # (1.3-7.7) k/uL Monocytes # (0-1.0) k/uL Basophils # (0-0.2) k/uL ABG pH (7.35-7.45) ABG pCO2 (35-45) mmHg ABG pO2 (83-108) mmHg ABG HCO3 (21-25) mmol/L ABG Total CO2 (19-24) mmol/L ABG O2 Saturation (94-97) % VBG pH (7.31-7.41) VBG pCO2 (37-51) mmHg VBG HCO3 (24-28) mmol/L Sodium (137-145) mmol/L Potassium (3.5-5.1) mmol/L Chloride (98-107) mmol/L Carbon Dioxide (22-30) mmol/L BUN (7-17) mg/dL Glucose (74-99) mg/dL POC Glucose (mg/dL) 237 H 260 H 205 H (75-99) mg/dL Hemoglobin A1c (4.0-6.0) % Plasma Lactic Acid Manny (0.7-2.0) mmol/L Calcium (8.4-10.2) mg/dL Phosphorus (2.5-4.5) mg/dL AST (14-36) U/L Alkaline Phosphatase (38-126) U/L Ammonia (<30) umol/L Amylase (30-110) U/L Lipase (23-300) U/L Urine Glucose (UA) (Negative) Urine Ketones (Negative) Urine Blood (Negative) Urine Bacteria (None) /hpf Urine Mucus (None) /hpf 01/12/19 01/12/19 01/12/19 Range/Units 16:00 16:00 17:07 WBC (4.0-11.0) k/uL MCHC (31.0-37.0) g/dL Neutrophils # (1.3-7.7) k/uL Monocytes # (0-1.0) k/uL Basophils # (0-0.2) k/uL ABG pH (7.35-7.45) ABG pCO2 (35-45) mmHg ABG pO2 (83-108) mmHg ABG HCO3 (21-25) mmol/L ABG Total CO2 (19-24) mmol/L ABG O2 Saturation (94-97) % VBG pH (7.31-7.41) VBG pCO2 (37-51) mmHg VBG HCO3 (24-28) mmol/L Sodium 152 H (137-145) mmol/L Potassium 3.1 L (3.5-5.1) mmol/L Chloride 123 H (98-107) mmol/L Carbon Dioxide 11 L (22-30) mmol/L BUN (7-17) mg/dL Glucose 210 H (74-99) mg/dL POC Glucose (mg/dL) 183 H (75-99) mg/dL Hemoglobin A1c (4.0-6.0) % Plasma Lactic Acid Manny (0.7-2.0) mmol/L Calcium 7.5 L (8.4-10.2) mg/dL Phosphorus (2.5-4.5) mg/dL AST (14-36) U/L Alkaline Phosphatase (38-126) U/L Ammonia (<30) umol/L Amylase 453 H* (30-110) U/L Lipase 435 H (23-300) U/L Urine Glucose (UA) (Negative) Urine Ketones (Negative) Urine Blood (Negative) Urine Bacteria (None) /hpf Urine Mucus (None) /hpf 01/12/19 01/12/19 01/12/19 Range/Units 18:00 18:49 20:02 WBC (4.0-11.0) k/uL MCHC (31.0-37.0) g/dL Neutrophils # (1.3-7.7) k/uL Monocytes # (0-1.0) k/uL Basophils # (0-0.2) k/uL ABG pH (7.35-7.45) ABG pCO2 (35-45) mmHg ABG pO2 (83-108) mmHg ABG HCO3 (21-25) mmol/L ABG Total CO2 (19-24) mmol/L ABG O2 Saturation (94-97) % VBG pH (7.31-7.41) VBG pCO2 (37-51) mmHg VBG HCO3 (24-28) mmol/L Sodium (137-145) mmol/L Potassium (3.5-5.1) mmol/L Chloride (98-107) mmol/L Carbon Dioxide (22-30) mmol/L BUN (7-17) mg/dL Glucose (74-99) mg/dL POC Glucose (mg/dL) 190 H 179 H 169 H (75-99) mg/dL Hemoglobin A1c (4.0-6.0) % Plasma Lactic Acid Manny (0.7-2.0) mmol/L Calcium (8.4-10.2) mg/dL Phosphorus (2.5-4.5) mg/dL AST (14-36) U/L Alkaline Phosphatase (38-126) U/L Ammonia (<30) umol/L Amylase (30-110) U/L Lipase (23-300) U/L Urine Glucose (UA) (Negative) Urine Ketones (Negative) Urine Blood (Negative) Urine Bacteria (None) /hpf Urine Mucus (None) /hpf 01/12/19 Range/Units 21:09 WBC (4.0-11.0) k/uL MCHC (31.0-37.0) g/dL Neutrophils # (1.3-7.7) k/uL Monocytes # (0-1.0) k/uL Basophils # (0-0.2) k/uL ABG pH (7.35-7.45) ABG pCO2 (35-45) mmHg ABG pO2 (83-108) mmHg ABG HCO3 (21-25) mmol/L ABG Total CO2 (19-24) mmol/L ABG O2 Saturation (94-97) % VBG pH (7.31-7.41) VBG pCO2 (37-51) mmHg VBG HCO3 (24-28) mmol/L Sodium (137-145) mmol/L Potassium (3.5-5.1) mmol/L Chloride (98-107) mmol/L Carbon Dioxide (22-30) mmol/L BUN (7-17) mg/dL Glucose (74-99) mg/dL POC Glucose (mg/dL) 185 H (75-99) mg/dL Hemoglobin A1c (4.0-6.0) % Plasma Lactic Acid Manny (0.7-2.0) mmol/L Calcium (8.4-10.2) mg/dL Phosphorus (2.5-4.5) mg/dL AST (14-36) U/L Alkaline Phosphatase (38-126) U/L Ammonia (<30) umol/L Amylase (30-110) U/L Lipase (23-300) U/L Urine Glucose (UA) (Negative) Urine Ketones (Negative) Urine Blood (Negative) Urine Bacteria (None) /hpf Urine Mucus (None) /hpf Laboratory Results WBC 24.0 k/uL (4.0-11.0) H 01/12/19 09:07 RBC 4.11 m/uL (3.80-5.40) 01/12/19 09:07 Hgb 12.7 gm/dL (11.4-16.0) 01/12/19 09:07 Hct 39.5 % (34.0-46.0) 01/12/19 09:07 MCV 96.1 fL (80.0-100.0) 01/12/19 09:07 MCH 30.9 pg (25.0-35.0) 01/12/19 09:07 MCHC 32.2 g/dL (31.0-37.0) 01/12/19 09:07 RDW 12.8 % (11.5-15.5) 01/12/19 09:07 Plt Count 302 k/uL (150-450) 01/12/19 09:07 Neutrophils % 78 % 01/12/19 03:34 Lymphocytes % 15 % 01/12/19 03:34 Monocytes % 4 % 01/12/19 03:34 Eosinophils % 1 % 01/12/19 03:34 Basophils % 1 % 01/12/19 03:34 Neutrophils # 23.5 k/uL (1.3-7.7) H 01/12/19 03:34 Lymphocytes # 4.3 k/uL (1.0-4.8) 01/12/19 03:34 Monocytes # 1.3 k/uL (0-1.0) H 01/12/19 03:34 Eosinophils # 0.1 k/uL (0-0.7) 01/12/19 03:34 Basophils # 0.4 k/uL (0-0.2) H 01/12/19 03:34 Hypochromasia Moderate 01/12/19 09:07 Macrocytosis Slight 01/11/19 21:00 Sample Site Left Radial 01/12/19 11:35 ABG pH 7.15 (7.35-7.45) L* 01/12/19 11:35 ABG pCO2 16 mmHg (35-45) L* 01/12/19 11:35 ABG pO2 95 mmHg (83-108) 01/12/19 11:35 ABG HCO3 6 mmol/L (21-25) L* 01/12/19 11:35 ABG Total CO2 6 mmol/L (19-24) L 01/12/19 11:35 ABG O2 Saturation 98.1 % (94-97) H 01/12/19 11:35 ABG Base Excess -23.4 mmol/L 01/12/19 11:35 Alessandro Test Yes 01/12/19 11:35 VBG pH 6.84 (7.31-7.41) L* 01/12/19 03:34 VBG pCO2 24 mmHg (37-51) L 01/12/19 03:34 VBG HCO3 4 mmol/L (24-28) L* 01/12/19 03:34 FiO2 21 % 01/12/19 11:35 Sodium 152 mmol/L (137-145) H 01/12/19 16:00 Potassium 3.1 mmol/L (3.5-5.1) L 01/12/19 16:00 Chloride 123 mmol/L (98-107) H 01/12/19 16:00 Carbon Dioxide 11 mmol/L (22-30) L 01/12/19 16:00 Anion Gap 18 mmol/L 01/12/19 16:00 BUN 16 mg/dL (7-17) 01/12/19 16:00 Creatinine 0.83 mg/dL (0.52-1.04) 01/12/19 16:00 Est GFR (CKD-EPI)AfAm >90 (>60 ml/min/1.73 sqM) 01/12/19 16:00 Est GFR (CKD-EPI)NonAf >90 (>60 ml/min/1.73 sqM) 01/12/19 16:00 Glucose 210 mg/dL (74-99) H 01/12/19 16:00 POC Glucose (mg/dL) 185 mg/dL (75-99) H 01/12/19 21:09 POC Glu Bottle Label Inspector ID Dayana Gutierres 01/12/19 21:[address] Glu mg/dL 269 01/11/19 21:00 Hemoglobin A1c 11.0 % (4.0-6.0) H 01/11/19 21:00 Lactic Ac Sepsis Rflx Y 01/11/19 21:51 Plasma Lactic Acid Manny 1.0 mmol/L (0.7-2.0) 01/12/19 10:01 Calcium 7.5 mg/dL (8.4-10.2) L 01/12/19 16:00 Phosphorus 1.6 mg/dL (2.5-4.5) L 01/12/19 05:15 Magnesium 2.1 mg/dL (1.6-2.3) 01/11/19 21:00 Total Bilirubin 0.4 mg/dL (0.2-1.3) 01/11/19 21:00 AST 84 U/L (14-36) H 01/11/19 21:00 ALT 33 U/L (9-52) 01/11/19 21:00 Alkaline Phosphatase 173 U/L (38-126) H 01/11/19 21:00 Ammonia 115 umol/L (<30) H 01/11/19 21:00 Total Protein 6.7 g/dL (6.3-8.2) 01/11/19 21:00 Albumin 3.9 g/dL (3.5-5.0) 01/11/19 21:00 Amylase 453 U/L (30-110) H* 01/12/19 16:00 Lipase 435 U/L (23-300) H 01/12/19 16:00 HCG, Qual Not Detected 01/11/19 21:00 Urine Color Light Yellow 01/12/19 05:25 Urine Appearance Clear (Clear) 01/12/19 05:25 Urine pH 5.5 (5.0-8.0) 01/12/19 05:25 Ur Specific [place] 1.015 (1.001-1.035) 01/12/19 05:25 Urine Protein Negative (Negative) 01/12/19 05:25 Urine Glucose (UA) 1+ (Negative) H 01/12/19 05:25 Urine Ketones 4+ (Negative) H 01/12/19 05:25 Urine Blood Trace (Negative) H 01/12/19 05:25 Urine Nitrite Negative (Negative) 01/12/19 05:25 Urine Bilirubin Negative (Negative) 01/12/19 05:25 Urine Urobilinogen <2.0 mg/dL (<2.0) 01/12/19 05:25 Ur Leukocyte Esterase Negative (Negative) 01/12/19 05:25 Urine RBC 2 /hpf (0-5) 01/12/19 05:25 Urine WBC 1 /hpf (0-5) 01/12/19 05:25 Ur Squamous Epith Cells 2 /hpf (0-4) 01/12/19 05:25 Urine Bacteria Occasional /hpf (None) H 01/12/19 05:25 Urine Mucus Occasional /hpf (None) H 01/12/19 05:25 Acetone, Qual Positive (Negative) 01/12/19 03:34 Assessment and Plan (1) DKA (diabetic ketoacidoses) Current Visit: Yes Status: Acute Code(s): E11.10 - TYPE 2 DIABETES MELLITUS WITH KETOACIDOSIS WITHOUT COMA SNOMED Code(s): 956578014 (2) Hypothermia Current Visit: Yes Status: Acute Code(s): T68.XXXA - HYPOTHERMIA, INITIAL ENCOUNTER SNOMED Code(s): 939331839 (3) Hyperosmolality and hypernatremia Current Visit: Yes Status: Acute Code(s): E87.0 - HYPEROSMOLALITY AND HYPERNATREMIA SNOMED Code(s): 736479319 (4) Fever Current Visit: Yes Status: Acute Code(s): R50.9 - FEVER, UNSPECIFIED SNOMED Code(s): 114140398 (5) Leukocytosis Narrative/Plan: 18 year old female with dm type1 since age 1, presents to hospital with nausea emesis abdominal pain and evidence of altered mentation as well as rapid respirations. Was found to have DKA and severe refractory acidosis requiring fluid resuscitation and IV insulin. At presentation was hypothermic and developed low grade fever later. Remains with the altered mentation but is improving as the day progresses. The cxray shows some peribronchial cuffing, which could be infectious and with multiple bouts of emesis concern to aspiration thus antibiotic changed to zosyn and continue vancomycin while cultures in progress. Underlying infection is of concern given presentation but he severe acidosis does result in SIRS symptoms also. Will deescalate therapy as culture progress. The current stage of mentation appears related to the metabolic alterations. Current Visit: Yes Status: Acute Code(s): D72.829 - ELEVATED WHITE BLOOD CELL COUNT, UNSPECIFIED SNOMED Code(s): 436937717
[2019-01-12 23:06] LABS: Glucose,Whole Blood 176 mg/dL (75-99)
[2019-01-12 23:54] LABS: Potassium 3.7 mmol/L (3.5-5.1)
[2019-01-13 00:03] LABS: Glucose,Whole Blood 205 mg/dL (75-99)
[2019-01-13] MEDS: DEXTROSE 5% IN WATER 1,000 ML with SODIUM BICARB (1 MEQ/ML) 150 ML, POTASSIUM CHLORIDE ... IV SCH ×6 (00:57→09:36)
[2019-01-13 01:38] LABS: Glucose,Whole Blood 162 mg/dL (75-99)
[2019-01-13 02:08] LABS: Glucose,Whole Blood 174 mg/dL (75-99)
[2019-01-13 04:23] LABS: Glucose,Whole Blood 198 mg/dL (75-99)
[2019-01-13 05:02] LABS: Glucose,Whole Blood >600 mg/dL (75-99)
[2019-01-13 05:05] LABS: Glucose,Whole Blood 175 mg/dL (75-99)
[2019-01-13 05:20] LABS: Basophils % (A) 0 %; Eosinophils # (A) 0.2 k/uL (0-0.7); Eosinophils % (A) 2 %; HCT 33.2 % (34.0-46.0); HGB 10.9 gm/dL (11.4-16.0); Lymphocytes % (A) 11 %; MCH 29.9 pg (25.0-35.0); MCHC 32.9 g/dL (31.0-37.0); Mean Platelet Volume 7.4; Monocytes # (A) 0.7 k/uL (0-1.0); Monocytes % (A) 7 %; Neutrophils # (A) 7.7 k/uL (1.3-7.7); Neutrophils % (A) 79 %; Platelet Count 262 k/uL (150-450); RBC 3.65 m/uL (3.80-5.40); RDW 14.2 % (11.5-15.5); WBC 9.7 k/uL (4.0-11.0)
[2019-01-13 06:04] LABS: Glucose,Whole Blood 194 mg/dL (75-99)
[2019-01-13 06:41] LABS: Sodium 150 mmol/L (137-145)
[2019-01-13 06:43] LABS: ALT 32 U/L (9-52); AST 41 U/L (14-36); African American GFR (CKD) >90 (>60 ml/min/1.73 sqM); Albumin 2.8 g/dL (3.5-5.0); Alkaline Phosphatase 91 U/L (38-126); Amylase 212 U/L (30-110); Anion Gap 12 mmol/L; Blood Urea Nitrogen 14 mg/dL (7-17); Calcium 7.1 mg/dL (8.4-10.2); Carbon Dioxide 21 mmol/L (22-30); Chloride 117 mmol/L (98-107); Glucose 180 mg/dL (74-99); Potassium 2.9 mmol/L (3.5-5.1); Total Bilirubin 0.3 mg/dL (0.2-1.3); Total Protein 5.1 g/dL (6.3-8.2)
[2019-01-13 06:57] LABS: Glucose,Whole Blood 189 mg/dL (75-99)
[2019-01-13] MEDS ORDERED: SODIUM CHLORIDE 0.45% 1,000 ML with POTASSIUM CHLORIDE 40 MEQ IV SCH ×2 (08:15)
[2019-01-13] MEDS ORDERED: SODIUM CHLORIDE 0.45% 1,000 ML with POTASSIUM CHLORIDE 20 MEQ IV SCH ×2 (08:30)
[2019-01-13 09:41] LABS: Glucose,Whole Blood 140 mg/dL (75-99)
[2019-01-13] MEDS ORDERED: Magnesium Replacement Protocol 1 EACH MISC MISCELLANE PRN (09:43)
[2019-01-13] MEDS: POTASSIUM CHLORIDE 10 MEQ in WATER FOR INJECTION 1 100ML.BAG IVPB SCH ×5 (09:48→19:53)
[2019-01-13] MEDS: MAGNESIUM SULFATE-D5W PMX 1 GM in DEXTROSE/WATER 1 100ML.BAG IVPB SCH ×2 (09:49→13:07)
[2019-01-13] MEDS: NICOTINE 21MG/24HR PATCH TRANSDERM SCH (09:49)
[2019-01-13] MEDS: ENOXAPARIN 40 MG/0.4 ML SYRINGE SQ SCH (09:49)
[2019-01-13] MEDS: PANTOPRAZOLE 40 MG/10 ML VIAL IVP SCH (09:49)
[2019-01-13] MEDS: 0.45% NACL WITH KCL 20 MEQ/L 1,000 ML IV SCH (10:48)
[2019-01-13] MEDS: INSULIN DETEMIR (LEVEMIR) 100 UNIT/ML SYR SQ SCH (10:48)
[2019-01-13] MEDS: ACETAMINOPHEN TAB 325 MG TAB PO PRN ×2 (11:19→18:47)
[2019-01-13 12:10] LABS: Glucose,Whole Blood 256 mg/dL (75-99)
[2019-01-13] MEDS: INSULIN ASPART (NovoLOG) 100 UNIT/ML VIAL SQ SCH ×3 (13:06→21:34)
--- NOTE | 2019-01-13 14:22 | P.PN ---
Subjective Progress Note Date: 01/13/19 This is a 18-year-old white female patient with past medical history of type 1 diabetes diagnosed at age 2, previous episodes of diabetic ketoacidosis and pancreatitis, migraine headaches, psoriasis, ADD/ADHD, anxiety, PTSD, smoker, history of appendectomy and cholecystectomy, who was transferred from [facility] on 01/11/2019 at 2050 in the evening, where she was taken by ambulance for evaluation of her mental status, confusion, and suspected diabetic ketoacidosis. Patient's mother is at the bedside, and was providing most of the information, she states her daughter is 18, and she has been residing with her boyfriend. The last couple days she is complaining of constipation, yesterday morning patient had a couple episodes of vomiting, her mentation was appropriate. Apparently the boyfriend had checked on the patient through the day, and patient had gotten progressively worse, with decreasing mentation, confusion. Patient follows with Dr. Lopez, and she is on a combination of NovoLog, and Lantus 40 units at bedtime. Last A1c is unknown. Review of the patient's [place] record demonstrates that her pH was 6.7, and her initial glucose was in the 600s, CO2 was less than 2. The patient was fluid resuscitated with 4 L of fluid and started on insulin infusion at 6 units per hour. His given empiric antibiotic in the form of vancomycin and cefepime evidence of leukocytosis with a white blood cell count of 42,000, chest x-ray was negative. Urinalysis was positive for 4+ ketones, glucose, but negative for signs of infection, serum acetone was positive 2, hCG was not detected, patient did have a mild lactic acidosis, of 3.2, she received a total of 5 L of fluid, 4 L at [facility] and one at [facility]. Current lactic acid is 1.0. Follow-up blood gas showed a pH of 7.02, pCO2 of 15, and pO2 of 125, patient was given sodium bicarb, this morning his blood work showed a sodium of 152, potassium is 4.5, chloride is 125, CO2 is less than 5, BUN is 19 and creatinine 0.90. Patient is currently in the intensive care unit, and she is quite confused, delirious, she is yelling out at times, her mother is at the bedside, patient is still tachycardic, with a heart rate in the 140s, but pressure is 105/68, respirations are rapid, 30-38 respirations per minute, rectal temp was 98.2. We'll send blood cultures, we'll give the patient additional 1 L bolus of 0.45 saline, and we'll repeat a blood gas and electrolytes, insulin infusion is at 5 units per hour. On 01/13/2019, I'm seeing this patient for a follow-up. Over the past 24 hours the patient was aggressively treated for an acute and severe DKA. Ultimately she recovered from this morning and anion gap is closed. Her serum bicarb is up to 21. The creatinine is down to 0.5. Her sodium level is down to 150. Potassium level is at 2.9 and still being replaced. Anion gap today is 12. No significant leukocytosis white cell count is down to 9.7. Liver function tests are also within normal limits. The lipase also dropped down to 3:30. Amylase dropped down to 212. The patient is awake. The patient is not cold tolerating well. She is not answering all questions asked. Based on all this, I decided to stop insulin drip. I switched her to a Lantus 40 units daily along with insulin scale coverage and I also offered her diet. No reported nausea or vomiting. No department abdominal pain. No headache. No neck stiffness. No nausea. No vomiting. No diarrhea. No abdominal distention. Blood cultures been negative for now. As for the IV fluids, I switched her today half-normal saline with 20 mg of potassium at the rate of 75 mL an hour. Objective - Vital Signs Vital signs: Vital Signs Temp 98.9 F 01/13/19 08:00 Pulse 99 01/13/19 13:30 Resp 33 H 01/13/19 13:30 BP 102/61 01/13/19 13:30 Pulse Ox 99 01/13/19 11:00 Intake & Output 01/12/19 01/13/19 01/13/19 18:59 06:59 18:59 Intake Total 5337.517 2100 1025 Output Total 3070 730 390 Balance 2267.517 1370 635 Weight 69.717 kg 69 kg Intake: IV 5230 2100 1025 0.45% NaCl with KCl 20 225 Meq/l 1,000 ml @ 75 mls/ hr IV .[id number] VEGA Rx#: [id number] Cefepime 1 gm In Sodium 100 50 Chloride 0.9% 50 ml @ 100 mls/hr IVPB Q12HR VEGA Rx #:[id number] Dextrose 5% in Water 1, 600 000 ml @ 200 mls/hr IV . Q5H45M VEGA with Sodium Bicarb (1 Meq/ml) 150 ml Rx#:[id number] Dextrose 5% in Water 1, 850 2000 400 000 ml @ 200 mls/hr IV . Q6H15M VEGA with Sodium Bicarb (1 Meq/ml) 150 ml with Potassium Chloride 20 meq Rx#:[id number] Dextrose 5%-0.45% NaCl 1, 1600 000 ml @ 200 mls/hr IV . Q5H VEGA Rx#:[id number] Dextrose 5%-0.45% NaCl 1, 400 000 ml @ 200 mls/hr IV . Q5H30M VEGA with Sodium Bicarb (1 Meq/ml) 100 ml Rx#:[id number] Magnesium Sulfate-D5w Pmx 200 1 gm In Dextrose/Water 1 100ml.bag @ 100 mls/hr IVPB Q1H VEGA Rx#: [id number] Potassium Chloride 20 meq 100 50 200 In Water For Injection 1 100ml.bag @ 50 mls/hr IVPB ONCE STA Rx#: [id number] Potassium Phosphate 10 500 mmol In Sodium Chloride 0 .9% 250 ml @ 125 mls/hr IV Q2H VEGA Rx#:[id number] Sodium Chloride 0.9% 1, 1080 000 ml @ 999 mls/hr IV . Q1H1M ONE Rx#:[id number] Intake, IV Titration 107.517 Amount Dextrose 5%-0.45% NaCl 1, 50 000 ml @ 50 mls/hr IV . Q22H VEGA with Potassium Chloride 20 meq Rx#: [id number] Non-Formulary Drug 1 each 57.517 In Sodium Chloride 0.9% 100 ml @ Per Protocol IV .Q0M VEGA Rx#:[id number] Output: Urine 3070 730 390 Other: Voiding Method Indwelling Catheter Indwelling Catheter - Exam GENERAL EXAM: The patient is awake. The patient was able to sit up on a chair to have a diet. The patient is not conversing with me. I was told by the nursing staff that she talks whenever she wants to. There may be an underlying psychiatric issue underlying her condition and complicating her DKA. HEAD: Normocephalic/atraumatic. EYES: Normal reaction of pupils, equal size. Conjunctiva pink, sclera white. NOSE: Clear with pink turbinates. THROAT: No erythema or exudates. NECK: No masses, no JVD, no thyroid enlargement, no adenopathy. CHEST: No chest wall deformity. Symmetrical expansion. LUNGS: Equal air entry with no crackles, wheeze, rhonchi or dullness. CVS: Regular rate and rhythm, normal S1 and S2, no gallops, no murmurs, no rubs ABDOMEN: Soft, nontender. No hepatosplenomegaly, normal bowel sounds, no guarding or rigidity. EXTREMITIES: No clubbing, no edema, no cyanosis, 2+ pulses and upper and lower extremities. MUSCULOSKELETAL: Muscle strength and tone normal. SPINE: No scoliosis or deformity SKIN: No rashes CENTRAL NERVOUS SYSTEM: She is awake and alert. She has spoken earlier to the nursing staff. She watches television. She refused to talk to me on today's evaluation. No focal deficits, tone is normal in all 4 extremities. - Labs CBC & Chem 7: 01/13/19 05:04 01/13/19 05:04 Labs: Abnormal Lab Results - Last 24 Hours (Table) 01/12/19 01/12/19 01/12/19 Range/Units 13:55 15:02 15:58 RBC (3.80-5.40) m/uL Hgb (11.4-16.0) gm/dL Hct (34.0-46.0) % Sodium (137-145) mmol/L Potassium (3.5-5.1) mmol/L Chloride (98-107) mmol/L Carbon Dioxide (22-30) mmol/L Glucose (74-99) mg/dL POC Glucose (mg/dL) 237 H 260 H 205 H (75-99) mg/dL Calcium (8.4-10.2) mg/dL Magnesium (1.6-2.3) mg/dL AST (14-36) U/L Total Protein (6.3-8.2) g/dL Albumin (3.5-5.0) g/dL Amylase (30-110) U/L Lipase (23-300) U/L 01/12/19 01/12/19 01/12/19 Range/Units 16:00 16:00 17:07 RBC (3.80-5.40) m/uL Hgb (11.4-16.0) gm/dL Hct (34.0-46.0) % Sodium 152 H (137-145) mmol/L Potassium 3.1 L (3.5-5.1) mmol/L Chloride 123 H (98-107) mmol/L Carbon Dioxide 11 L (22-30) mmol/L Glucose 210 H (74-99) mg/dL POC Glucose (mg/dL) 183 H (75-99) mg/dL Calcium 7.5 L (8.4-10.2) mg/dL Magnesium (1.6-2.3) mg/dL AST (14-36) U/L Total Protein (6.3-8.2) g/dL Albumin (3.5-5.0) g/dL Amylase 453 H* (30-110) U/L Lipase 435 H (23-300) U/L 01/12/19 01/12/19 01/12/19 Range/Units 18:00 18:49 20:02 RBC (3.80-5.40) m/uL Hgb (11.4-16.0) gm/dL Hct (34.0-46.0) % Sodium (137-145) mmol/L Potassium (3.5-5.1) mmol/L Chloride (98-107) mmol/L Carbon Dioxide (22-30) mmol/L Glucose (74-99) mg/dL POC Glucose (mg/dL) 190 H 179 H 169 H (75-99) mg/dL Calcium (8.4-10.2) mg/dL Magnesium (1.6-2.3) mg/dL AST (14-36) U/L Total Protein (6.3-8.2) g/dL Albumin (3.5-5.0) g/dL Amylase (30-110) U/L Lipase (23-300) U/L 01/12/19 01/12/19 01/12/19 Range/Units 21:09 22:08 22:45 RBC (3.80-5.40) m/uL Hgb (11.4-16.0) gm/dL Hct (34.0-46.0) % Sodium 150 H (137-145) mmol/L Potassium (3.5-5.1) mmol/L Chloride 119 H (98-107) mmol/L Carbon Dioxide 17 L (22-30) mmol/L Glucose (74-99) mg/dL POC Glucose (mg/dL) 185 H 234 H (75-99) mg/dL Calcium (8.4-10.2) mg/dL Magnesium (1.6-2.3) mg/dL AST (14-36) U/L Total Protein (6.3-8.2) g/dL Albumin (3.5-5.0) g/dL Amylase (30-110) U/L Lipase (23-300) U/L 01/12/19 01/13/19 01/13/19 Range/Units 23:04 00:01 01:03 RBC (3.80-5.40) m/uL Hgb (11.4-16.0) gm/dL Hct (34.0-46.0) % Sodium (137-145) mmol/L Potassium (3.5-5.1) mmol/L Chloride (98-107) mmol/L Carbon Dioxide (22-30) mmol/L Glucose (74-99) mg/dL POC Glucose (mg/dL) 176 H 205 H 162 H (75-99) mg/dL Calcium (8.4-10.2) mg/dL Magnesium (1.6-2.3) mg/dL AST (14-36) U/L Total Protein (6.3-8.2) g/dL Albumin (3.5-5.0) g/dL Amylase (30-110) U/L Lipase (23-300) U/L 01/13/19 01/13/19 01/13/19 Range/Units 02:04 04:08 05:00 RBC (3.80-5.40) m/uL Hgb (11.4-16.0) gm/dL Hct (34.0-46.0) % Sodium (137-145) mmol/L Potassium (3.5-5.1) mmol/L Chloride (98-107) mmol/L Carbon Dioxide (22-30) mmol/L Glucose (74-99) mg/dL POC Glucose (mg/dL) 174 H 198 H >600 H (75-99) mg/dL Calcium (8.4-10.2) mg/dL Magnesium (1.6-2.3) mg/dL AST (14-36) U/L Total Protein (6.3-8.2) g/dL Albumin (3.5-5.0) g/dL Amylase (30-110) U/L Lipase (23-300) U/L 01/13/19 01/13/19 01/13/19 Range/Units 05:03 05:04 05:04 RBC 3.65 L (3.80-5.40) m/uL Hgb 10.9 L (11.4-16.0) gm/dL Hct 33.2 L (34.0-46.0) % Sodium 150 H (137-145) mmol/L Potassium 2.9 L (3.5-5.1) mmol/L Chloride 117 H (98-107) mmol/L Carbon Dioxide 21 L (22-30) mmol/L Glucose 180 H (74-99) mg/dL POC Glucose (mg/dL) 175 H (75-99) mg/dL Calcium 7.1 L (8.4-10.2) mg/dL Magnesium (1.6-2.3) mg/dL AST 41 H (14-36) U/L Total Protein 5.1 L (6.3-8.2) g/dL Albumin 2.8 L (3.5-5.0) g/dL Amylase 212 H (30-110) U/L Lipase 330 H (23-300) U/L 01/13/19 01/13/19 01/13/19 Range/Units 05:04 06:02 06:54 RBC (3.80-5.40) m/uL Hgb (11.4-16.0) gm/dL Hct (34.0-46.0) % Sodium (137-145) mmol/L Potassium (3.5-5.1) mmol/L Chloride (98-107) mmol/L Carbon Dioxide (22-30) mmol/L Glucose (74-99) mg/dL POC Glucose (mg/dL) 194 H 189 H (75-99) mg/dL Calcium (8.4-10.2) mg/dL Magnesium 1.3 L (1.6-2.3) mg/dL AST (14-36) U/L Total Protein (6.3-8.2) g/dL Albumin (3.5-5.0) g/dL Amylase (30-110) U/L Lipase (23-300) U/L 01/13/19 01/13/19 Range/Units 09:38 12:07 RBC (3.80-5.40) m/uL Hgb (11.4-16.0) gm/dL Hct (34.0-46.0) % Sodium (137-145) mmol/L Potassium (3.5-5.1) mmol/L Chloride (98-107) mmol/L Carbon Dioxide (22-30) mmol/L Glucose (74-99) mg/dL POC Glucose (mg/dL) 140 H 256 H (75-99) mg/dL Calcium (8.4-10.2) mg/dL Magnesium (1.6-2.3) mg/dL AST (14-36) U/L Total Protein (6.3-8.2) g/dL Albumin (3.5-5.0) g/dL Amylase (30-110) U/L Lipase (23-300) U/L Microbiology - Last 24 Hours (Table) 01/12/19 10:01 Blood Culture - Preliminary Blood No Growth after 24 hours Assessment and Plan Plan: #1. Acute diabetic ketoacidosis, recovered and the patient is switched to Lantus 40 units along with vascular coverage. Anion gap metabolic acidosis is recovered. #2. Severe anion gap metabolic acidosis due to the above, recovered #3. Severe dehydration, and significant metabolic disturbances including lactic acidosis and ketoacidosis, recovered #4. Leukocytosis, rule out sepsis, cultures are negative and the patient was a count has normalized. She is afebrile. #5. Altered mentation, delirium, metabolic encephalopathy, related to the above. CT negative for acute findings. The mental status improved significantly and the patient is awake and alert. There may be an underlying psychiatric condition and I'm awaiting a psychiatric evaluation. #6. Diabetes mellitus type 1 under the care of Dr. Lopez, last A1c is unknown #7. Previous episodes of DKA and pancreatitis #8. Migraine headaches #9. Psoriasis #10. History of cholecystectomy, and appendectomy #11. ADHD, anxiety, PTSD #12. Current smoker Plan Stop the prednisone was continued. Levemir insulin 40 units along with his vascular coverage. Half-normal saline at the rate of 75 mL an hour along with potassium supplements. Replace potassium level. Recheck potassium level. Awaiting psychiatric evaluation. We'll continue to follow.
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
[2019-01-13 17:15] LABS: Glucose,Whole Blood 223 mg/dL (75-99)
[2019-01-13] MEDS: PIPERACILLIN-TAZOBACTAM 3.375 GM in SODIUM CHLORIDE 0.9% 100 ML IVPB SCH (21:35)
[2019-01-13 21:44] LABS: Glucose,Whole Blood 178 mg/dL (75-99)
[2019-01-13 21:44] LABS: Glucose,Whole Blood 165 mg/dL (75-99)
--- NOTE | 2019-01-13 22:36 | P.PN ---
Progress Note - Text Progress Note Date: 01/13/19 Interval history: This is a 18-year-old patient of Dr. Richie Blanchard. Most history is obtained from the ER and the mother at the bedside. Patient was diagnosed with diabetes at the age of 1. Had [facility] automotive [facility] 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 Yeboah. Patient states stays currently at her mother's sisters place. And she was testing her boyfriend that she not feeling well. When her aunt came back from work she found the patient rather lethargic on the sofa breathing heavily. She did call 911. Patient was taken to [facility] and was found to be in diabetic ketoacidosis severe. Patient was then transferred here to the ER and started on the DKA protocol. Patient was severely acidotic. Because of elevated white count he did have infectious workup to the ER with BACK to be negative. Patient's been having fevers. Was empirically started on cefepime. Patient was then admitted to the ICU. Strategic Marketing Manager was also consulted. Dr. Hermelindo Adamson automotive tire testing supervisor was also consulted. Admitted with severe DKA. Does questionable aspiration pneumonia. If any.. Today-patient doing better. Blood work is better. It set up in a chair. Patient is very selective about talking. Patient's mother did tell the nurse patient is very dias about how she will talk to. I tried to talk to the patient but she simply side of the chair with eyes closed close. Review of systems cannot be done as patient really didn't talk Active Medications Acetaminophen (Tylenol Tab) 650 mg PO Q6HR PRN PRN Reason: Fever and/ or Mild Pain Last Admin: 01/13/19 18:47 Dose: 650 mg Documented by: Enoxaparin Sodium (Lovenox) 40 mg SQ DAILY [facility] Last Admin: 01/13/19 09:49 Dose: 40 mg Documented by: Escitalopram Oxalate (Lexapro) 5 mg PO DAILY [facility] Stop: 01/16/19 01:00 Escitalopram Oxalate (Lexapro) 10 mg PO DAILY [facility] Piperacillin Sod/Tazobactam (Sod 3.375 gm/ Sodium Chloride) 100 mls @ 25 mls/hr IVPB Q8H [facility] Last Admin: 01/13/19 21:35 Dose: 25 mls/hr Documented by: Potassium Chloride/Sodium Chloride (0.45% Ns-Kcl 20 Meq/L Iv Solution) 1,000 mls @ 75 mls/hr IV .[id number] [facility] Last Admin: 01/13/19 10:48 Dose: 75 mls/hr Documented by: Insulin Aspart (Novolog) 0 unit SQ ACHS [facility]; Protocol Last Admin: 01/13/19 21:34 Dose: 1 unit Documented by: Insulin Detemir (Levemir) 40 unit SQ DAILY@0700 [facility] Last Admin: 01/13/19 10:48 Dose: 40 unit Documented by: Miscellaneous Information (Magnesium Per Protocol) 1 each MISCELLANE DAILY PRN; Protocol PRN Reason: Per Protocol Miscellaneous Information (Potassium Per Protocol) 1 each MISCELLANE DAILY PRN PRN Reason: Per Protocol Miscellaneous Information (Phosphorus Per Protocol) 1 each MISCELLANE DAILY PRN; Protocol PRN Reason: Per Protocol Miscellaneous Information (Magnesium Per Protocol) 1 each MISCELLANE DAILY PRN; Protocol PRN Reason: Per Protocol Morphine Sulfate (Morphine Sulfate (Inj)) 1 mg IVP ONCE PRN PRN Reason: Pain/Discomfort Nicotine (Habitrol 21mg/24hr Patch) 1 patch TRANSDERM DAILY [facility] Last Admin: 01/13/19 09:49 Dose: 1 patch Documented by: Pantoprazole Sodium (Protonix) 40 mg IVP DAILY [facility] Last Admin: 01/13/19 09:49 Dose: 40 mg Documented by: Physical examination: VITAL SIGNS: 98.9, 117, 24, 97 x 64, 99% room air GENERAL: Sitting up a chair. Eyes closed, 1 talk to me EYES: Pupils equal. Conjunctiva normal. HEENT: External appearance of nose and ears normal, oral cavity dry. NECK: JVD unable to assess, mass not palpable. HEART: First and second heart sounds are normal; no edema. LUNGS: Respiratory rate increased; clear to auscultation. ABDOMEN: Soft, nontender, liver spleen not palpable, no masses palpable. PSYCH: Unable to assess INVESTIGATIONS, reviewed in the clinical context: White count 9.7 hemoglobin 10.9 sodium 150 potassium 2.9 chloride 117 glucose 180 Previous testing : White count 37.2 hemoglobin 12.9 rate is 365 sodium 148 potassium 5 creatinine 0.9 White count present 5 glucose 556 Initial blood gases show pH was 6.8 Lactic acid 3.2 Urine hCG negative serum acetone positive Computed tomography scan of the brain negative Computed tomography scan of the abdomen-negative EKG tracing-personally reviewed by me shows sinus tachycardia Chest x-ray film personally reviewed by me-lung posey clear UA negative for nitrate leukoesterase Assessment: -Severe diabetic ketoacidosis, corrected -Sepsis picture with no source of infection. Computed tomography scan of the abdomen, checks x-ray, UA all negative for infection. Wondered if the fever is from the DKA itself. Possible aspiration pneumonia -Hypothermia initially possibly from DKA -Chronic nicotine dependence patient cigarette smoker -Hypernatremia, from free water deficit, slow to improve -Hypokalemia from insulin Plan: Discussed with Dr. Elizalde from ID. May be an element of aspiration pneumonia. No other source of infection. Also spoke to patient automotive tire testing supervisor Dr. Yeboah. He did inform me that patient's stepmother and let the patient go because patient wanted to republican drinking and not being compliant. Spoke at length with the nurse Gwen several times. Told to increase the patient to be up in 2 to walk about. We'll keep the patient on D5 0.45. Repeat a sodium and potassium later today. Total time spent today was about 50 minutes with over 30 minutes of discussion
[2019-01-13 23:23] LABS: African American GFR (CKD) >90 (>60 ml/min/1.73 sqM); Anion Gap 6 mmol/L; Blood Urea Nitrogen 9 mg/dL (7-17); Calcium 7.6 mg/dL (8.4-10.2); Carbon Dioxide 26 mmol/L (22-30); Chloride 110 mmol/L (98-107); Glucose 134 mg/dL (74-99); Sodium 142 mmol/L (137-145)
[2019-01-13 23:29] LABS: Potassium 2.6 mmol/L (3.5-5.1)
[2019-01-13] MEDS ORDERED: POTASSIUM CHLORIDE ER 20 MEQ TAB.ER PO STA (23:48)
[2019-01-14] MEDS ORDERED: POTASSIUM CHLORIDE ER 20 MEQ TAB.ER PO ONE ×2 (00:48→06:30)
[2019-01-14] MEDS: ACETAMINOPHEN TAB 325 MG TAB PO PRN ×2 (04:19→12:39)
[2019-01-14] MEDS: 0.45% NACL WITH KCL 20 MEQ/L 1,000 ML IV SCH ×2 (04:24→12:32)
[2019-01-14 06:09] LABS: African American GFR (CKD) >90 (>60 ml/min/1.73 sqM); Anion Gap 5 mmol/L; Blood Urea Nitrogen 8 mg/dL (7-17); Calcium 7.8 mg/dL (8.4-10.2); Carbon Dioxide 28 mmol/L (22-30); Chloride 113 mmol/L (98-107); Glucose 68 mg/dL (74-99); Phosphorus 2.1 mg/dL (2.5-4.5); Potassium 3.2 mmol/L (3.5-5.1); Sodium 146 mmol/L (137-145)
[2019-01-14 06:31] LABS: Glucose,Whole Blood 74 mg/dL (75-99)
[2019-01-14] MEDS: PIPERACILLIN-TAZOBACTAM 3.375 GM in SODIUM CHLORIDE 0.9% 100 ML IVPB SCH ×2 (06:33→14:02)
[2019-01-14] MEDS: INSULIN ASPART (NovoLOG) 100 UNIT/ML VIAL SQ SCH ×3 (06:35→17:52)
[2019-01-14] MEDS ORDERED: INSULIN DETEMIR (LEVEMIR) 100 UNIT/ML SYR SQ SCH ×2 (07:00→07:30)
[2019-01-14] MEDS ORDERED: FAMOTIDINE 20 MG TAB PO SCH (09:00)
[2019-01-14] MEDS ORDERED: ESCITALOPRAM 5 MG TAB PO SCH (09:00)
[2019-01-14] MEDS: NICOTINE 21MG/24HR PATCH TRANSDERM SCH (09:20)
[2019-01-14] MEDS: ENOXAPARIN 40 MG/0.4 ML SYRINGE SQ SCH (09:22)
[2019-01-14] MEDS: DEXTROSE 5% IN WATER 1,000 ML with SODIUM BICARB (1 MEQ/ML) 150 ML, POTASSIUM CHLORIDE ... IV SCH ×3 (09:29)
[2019-01-14] MEDS: INSULIN DETEMIR (LEVEMIR) 100 UNIT/ML SYR SQ SCH (09:30)
[2019-01-14 09:37] VITALS: BMI 29.8
--- NOTE | 2019-01-14 10:47 | P.PN ---
Subjective Progress Note Date: 01/14/19 Principal diagnosis: Acute diabetic ketoacidosis This is a 18-year-old white female patient with past medical history of type 1 diabetes diagnosed at age 2, previous episodes of diabetic ketoacidosis and pancreatitis, migraine headaches, psoriasis, ADD/ADHD, anxiety, PTSD, smoker, history of appendectomy and cholecystectomy, who was transferred from [facility] on 01/11/2019 at 2050 in the evening, where she was taken by ambulance for evaluation of her mental status, confusion, and suspected diabetic ketoacidosis. Patient's mother is at the bedside, and was providing most of the information, she states her daughter is 18, and she has been residing with her boyfriend. The last couple days she is complaining of constipation, yesterday morning patient had a couple episodes of vomiting, her mentation was appropriate. Apparently the boyfriend had checked on the patient through the day, and patient had gotten progressively worse, with decreasing m entation, confusion. Patient follows with Dr. Lopez, and she is on a combination of NovoLog, and Lantus 40 units at bedtime. Last A1c is unknown. Review of the patient's [facility] record demonstrates that her pH was 6.7, and her initial glucose was in the 600s, CO2 was less than 2. The patient was fluid resuscitated with 4 L of fluid and started on insulin infusion at 6 units per hour. His given empiric antibiotic in the form of vancomycin and cefepime evidence of leukocytosis with a white blood cell count of 42,000, chest x-ray was negative. Urinalysis was positive for 4+ ketones, glucose, but negative for signs of infection, serum acetone was positive 2, hCG was not detected, patient did have a mild lactic acidosis, of 3.2, she received a total of 5 L of fluid, 4 L at [facility] and one at [facility]. Current lactic acid is 1.0. Follow-up blood gas showed a pH of 7.02, pCO2 of 15, and pO2 of 125, patient was given sodium bicarb, this morning his blood work showed a sodium of 152, potassium is 4.5, chloride is 125, CO2 is less than 5, B UN is 19 and creatinine 0.90. Patient is currently in the intensive care unit, and she is quite confused, delirious, she is yelling out at times, her mother is at the bedside, patient is still tachycardic, with a heart rate in the 140s, but pressure is 105/68, respirations are rapid, 30-38 respirations per minute, rectal temp was 98.2. We'll send blood cultures, we'll give the patient additional 1 L bolus of 0.45 saline, and we'll repeat a blood gas and electrolytes, insulin infusion is at 5 units per hour. On 01/13/2019, I'm seeing this patient for a follow-up. Over the past 24 hours the patient was aggressively treated for an acute and severe DKA. Ultimately she recovered from this morning and anion gap is closed. Her serum bicarb is up to 21. The creatinine is down to 0.5. Her sodium level is down to 150. Potassium level is at 2.9 and still being replaced. Anion gap today is 12. No significant leukocytosis white cell count is down to 9.7. Liver function tests are also within normal limits. The lipase also dropped down to 3:30. Amylase dropped down to 212. The patient is awake. The patient is not cold tolerating well. She is not answering all questions asked. Based on all this, I decided to stop insulin drip. I switched her to a Lantus 40 units daily along with insulin scale coverage and I also offered her diet. No reported nausea or vomiting. No department abdominal pain. No headache. No neck stiffness. No nausea. No vomiting. No diarrhea. No abdominal distention. Blood cultures been negative for now. As for the IV fluids, I switched her today half-normal saline with 20 mg of potassium at the rate of 75 mL an hour. On 01/14/2019 patient seen in follow-up on medical surgical floor. She is awake and alert, her mentation is much improved, she is answering questions, she is quite pleasant, cooperative today. Denies any distress, no difficulty breathing, she is ambulating in the room, she is waiting, she is tolerating oral intake, vital signs are stable, room air pulse ox is 99%, she is afebrile, hemodynamically stable, today's labs have been reviewed, showing a serum sodium of 146, potassium is 3.2, this being replaced per protocol, chloride is 113, BUN of 8 and creatinine 0.47. Blood culture showed no growth. We'll resume the patient's Humalog, and Lantus yesterday, her Lantus dose was decreased to 26 units. Clinically stable, no fever or chills, continues on Zosyn apparently there were positive blood cultures at [facility]. Follow- up blood cultures at this institution have been negative. Objective - Vital Signs Vital signs: Vital Signs Temp 98.5 F 01/14/19 09:12 Pulse 84 01/14/19 09:12 Resp 16 01/14/19 09:12 BP 108/76 01/14/19 09:12 Pulse Ox 99 01/14/19 09:12 Intake & Output 01/13/19 01/14/19 01/14/19 18:59 06:59 18:59 Intake Total 1250 1000 Output Total 690 935 Balance 560 65 Weight 71.6 kg 71.6 kg Intake: IV 1250 1000 0.45% NaCl with KCl 20 450 900 Meq/l 1,000 ml @ 75 mls/ hr IV .[id number] [facility]GA Rx#: [id number] Dextrose 5% in Water 1, 400 000 ml @ 200 mls/hr IV . Q6H15M [facility]GA with Sodium Bicarb (1 Meq/ml) 150 ml with Potassium Chloride 20 meq Rx#:[id number] Magnesium Sulfate-D5w Pmx 200 1 gm In Dextrose/Water 1 100ml.bag @ 100 mls/hr IVPB Q1H [facility] Rx#: [id number] Piperacillin-Tazobactam 3 100 .375 gm In Sodium Chloride 0.9% 100 ml @ 25 mls/hr IVPB Q8H [facility] Rx#: [id number] Potassium Chloride 20 meq 200 In Water For Injection 1 100ml.bag @ 50 mls/hr IVPB ONCE STA Rx#: [id number] Output: Urine 690 935 Other: Voiding Method Indwelling Catheter Indwelling Catheter - Exam GENERAL EXAM: Alert, pleasant, 18-year-old white female, on room air, ambulating to the bathroom comfortable in no apparent distress. HEAD: Normocephalic/atraumatic. EYES: Normal reaction of pupils, equal size. Conjunctiva pink, sclera white. NOSE: Clear with pink turbinates. THROAT: No erythema or exudates. NECK: No masses, no JVD, no thyroid enlargement, no adenopathy. CHEST: No chest wall deformity. Symmetrical expansion. LUNGS: Equal air entry with no crackles, wheeze, rhonchi or dullness. CVS: Regular rate and rhythm, normal S1 and S2, no gallops, no murmurs, no rubs ABDOMEN: Soft, nontender. No hepatosplenomegaly, normal bowel sounds, no guarding or rigidity. EXTREMITIES: No clubbing, no edema, no cyanosis, 2+ pulses and upper and lower extremities. MUSCULOSKELETAL: Muscle strength and tone normal. SPINE: No scoliosis or deformity SKIN: No rashes CENTRAL NERVOUS SYSTEM: Alert and oriented -3. No focal deficits, tone is normal in all 4 extremities. PSYCHIATRIC: Alert and oriented -3. Appropriate affect. Intact judgment and insight. - Labs CBC & Chem 7: 01/13/19 05:04 01/14/19 05:32 Labs: Abnormal Lab Results - Last 24 Hours (Table) 01/13/19 01/13/19 01/13/19 Range/Units 12:07 17:13 21:10 Sodium (137-145) mmol/L Potassium (3.5-5.1) mmol/L Chloride (98-107) mmol/L Creatinine (0.52-1.04) mg/dL Glucose (74-99) mg/dL POC Glucose (mg/dL) 256 H 223 H 178 H (75-99) mg/dL Calcium (8.4-10.2) mg/dL Phosphorus (2.5-4.5) mg/dL 01/13/19 01/13/19 01/14/19 Range/Units 21:31 22:53 05:32 Sodium 146 H (137-145) mmol/L Potassium 2.6 L* 3.2 L (3.5-5.1) mmol/L Chloride 110 H 113 H (98-107) mmol/L Creatinine 0.45 L 0.47 L (0.52-1.04) mg/dL Glucose 134 H 68 L (74-99) mg/dL POC Glucose (mg/dL) 165 H (75-99) mg/dL Calcium 7.6 L 7.8 L (8.4-10.2) mg/dL Phosphorus 2.1 L (2.5-4.5) mg/dL 01/14/19 Range/Units 06:29 Sodium (137-145) mmol/L Potassium (3.5-5.1) mmol/L Chloride (98-107) mmol/L Creatinine (0.52-1.04) mg/dL Glucose (74-99) mg/dL POC Glucose (mg/dL) 74 L (75-99) mg/dL Calcium (8.4-10.2) mg/dL Phosphorus (2.5-4.5) mg/dL Microbiology - Last 24 Hours (Table) 01/12/19 10:01 Blood Culture - Preliminary Blood No Growth after 24 hours Assessment and Plan Plan: Assessment: #1. Acute diabetic ketoacidosis, recovered, and patient has been transitioned to Levemir and Humalog. Anion gap metabolic acidosis recovered #2. Severe anion gap metabolic acidosis due to the above, recovered #3. Severe dehydration, and significant metabolic disturbances including lactic acidosis and ketoacidosis, recovered #4. Leukocytosis, rule out sepsis. Blood culture was positive at [facility], patient is currently on Zosyn, follow blood culture at this institution has been negative #5. Altered mentation, delirium, metabolic encephalopathy, related to the above. CT negative for acute findings. Improved significantly, there is also possibility of underlying psychiatric condition, and patient has been seen by psychiatry #6. Diabetes mellitus type 1 under the care of Dr. Lopez, last A1c is unknown #7. Previous episodes of DKA and pancreatitis #8. Migraine headaches #9. Psoriasis #10. History of cholecystectomy, and appendectomy #11. ADHD, anxiety, PTSD #12. Current smoker Plan: On today's evaluation patient is awake and alert, clinically stable, quite pleasant, cooperative, no acute issues overnight, serum potassium is being replaced per protocol, patient is tolerating oral diet, she has been transitioned to basal insulin and Humalog at mealtimes, she states her insulin pump should arrive in one week, and she has upcoming appointment with Dr. Lopez on January 31 and that she will try to get in to see him sooner in the office. She states she understands she needs to be compliant with her insulin. Vital signs are stable, follow blood cultures at this institution have been negative, no fever or chills, the service is following, and we'll follow their recommendation as far as to continue antibiotics are not. We will sign off, from pulmonary/critical care standpoint patient is stable for discharge. I performed a history & physical examination of the patient and discussed their management with my nurse practitioner, Michelle Lopes. I reviewed the nurse practitioner's note and agree with the documented findings and plan of care. Lung sounds are positive for clear breath sounds. The findings and the impression was discussed with the patient. I attest to the documentation by the nurse practitioner. Time with Patient: Less than 30
[2019-01-14 11:52] LABS: Glucose,Whole Blood 184 mg/dL (75-99)
[2019-01-14] MEDS ORDERED: SCOPOLAMINE 1.5MG/72HR PATCH TRANSDERM SCH (12:00)
[2019-01-14 14:03] VITALS: BP 124/84; PULSE 100; RESP 20; TEMP 98.6
[2019-01-14 16:53] LABS: Glucose,Whole Blood 266 mg/dL (75-99)
--- NOTE | 2019-01-14 23:15 | P.DS ---
Providers Date of admission: 01/12/19 00:26 Expected date of discharge: 01/14/19 Attending physician: Kadeem Crabtree Consults: 01/12/19 01:14 Consult Physician Urgent Consulting Provider: Clark Espino Consult Reason/Comments: acute DKA Do you want consulting provider notified?: Already Contacted 01/12/19 10:27 Consult Physician Routine Consulting Provider: Bailey Adamson Consult Reason/Comments: severe DKA Do you want consulting provider notified?: Yes 01/12/19 17:53 Consult Physician Routine Consulting Provider: Leandro Elizalde Consult Reason/Comments: Fever with sepsis, source unknown Do you want consulting provider notified?: Yes 01/13/19 08:13 Consult Physician Routine Consulting Provider: Jose Gonsalez Consult Reason/Comments: ADHD/PTSD, agitation Do you want consulting provider notified?: Yes Primary care physician: Richie Moreno [facility] Course: Hospital course: This is a 18-year-old patient of Dr. Richie Blanchard. Most history is obtained from the ER and the mother at the bedside. Patient was diagnosed with diabetes at the age of 1. Had been following with freight car repairer out of [facility]. Patient decided to change freight car repairer and moved locally and now follows with Dr. Yeboah. Patient states stays currently at her mother's sisters place. And she was testing her boyfriend that she not feeling well. When her aunt came back from work she found the patient rather lethargic on the sofa breathing heavily. She did call 911. Patient was taken to [facility] and was found to be in diabetic ketoacidosis severe. Patient was then transferred here to the ER and started on the DKA protocol. Patient was severely acidotic. Because of elevated white count he did have infectious workup to the ER with BACK to be negative. Patient's been having fevers. Was empirically started on cefepime. Patient was then admitted to the ICU. Director Speech was also consulted. Dr. Hermelindo Adamson freight car repairer was also consulted. Admitted with severe DKA. Does questionable aspiration pneumonia. If any.. Patient recovered fully. Up and about today tolerating a diet. Spoke to the mom, the patient and the fianc. Questions were answered. Told to follow with freight car repairer in next 2-3 days.. Consultation: Dr. Espino from brim setter Dr. Gonsalez from psychiatry Dr. Elizalde from CT Physical examination: VITAL SIGNS: 98.6, 100, 20, 124/84, 99% room air GENERAL: Sitting comfortably bed, cheerful EYES: Pupils equal. Conjunctiva normal. HEENT: External appearance of nose and ears normal, oral cavity dry. NECK: JVD unable to assess, mass not palpable. HEART: First and second heart sounds are normal; no edema. LUNGS: Respiratory rate increased; clear to auscultation. ABDOMEN: Soft, nontender, liver spleen not palpable, no masses palpable. PSYCH: Show 3, motor affect normal INVESTIGATIONS, reviewed in the clinical context: White count 9.7 hemoglobin 10.9 sodium 150 potassium 2.9 chloride 117 glucose 180 Nurse Cherry informed me that the blood cultures from [facility] came back as contaminant, this was discussed Dr. Elizalde Previous testing : White count 37.2 hemoglobin 12.9 rate is 365 sodium 148 potassium 5 creatinine 0.9 White count present 5 glucose 556 Initial blood gases show pH was 6.8 Lactic acid 3.2 Urine hCG negative serum acetone positive Computed tomography scan of the brain negative Computed tomography scan of the abdomen-negative EKG tracing-personally reviewed by me shows sinus tachycardia Chest x-ray film personally reviewed by me-lung posey clear UA negative for nitrate leukoesterase Discharge diagnosis: -Severe diabetic ketoacidosis, corrected -Sepsis picture with no source of infection. Computed tomography scan of the abdomen, checks x-ray, UA all negative for infection. Wondered if the fever is from the DKA itself. Possible aspiration pneumonia -Hypothermia initially possibly from DKA -Chronic nicotine dependence patient cigarette smoker -Hypernatremia, from free water deficit, slow to improve -Hypokalemia from insulin Disposition: Home Patient Condition at Discharge: Stable Plan - Discharge Summary New Discharge Prescriptions: New Nicotine 21Mg/24Hr Patch [Habitrol] 1 patch TRANSDERM DAILY #14 patch Escitalopram [Lexapro] 10 mg PO DAILY #30 tab Insulin Aspart [NovoLOG Flexpen] 0 units SQ DIRECTED #1 ml Continue Insulin Aspart [NovoLOG Flexpen] See Protocol SQ ACHS #1 pen Changed Insulin Glargine,Hum.rec.anlog [Lantus Solostar] 30 unit SQ HS #0 Discharge Medication List Escitalopram [Lexapro] 10 mg PO DAILY #30 tab 01/14/19 [Rx] Insulin Aspart [NovoLOG Flexpen] 0 units SQ DIRECTED #1 ml 01/14/19 [Rx] Insulin Aspart [NovoLOG Flexpen] See Protocol SQ ACHS #1 pen 01/14/19 [Rx] Insulin Glargine,Hum.rec.anlog [Lantus Solostar] 30 unit SQ HS #0 01/14/19 [Rx] Nicotine 21Mg/24Hr Patch [Habitrol] 1 patch TRANSDERM DAILY #14 patch 01/14/19 [Rx] Follow up Appointment(s)/Referral(s): Richie Moreno MD [Primary Care Provider] - 3 Days (Pt prefers to schedule.) Arnel Yeboah MD [REFERRING] - 01/31/19 10:30 am (. ) Patient Instructions/Handouts: How to Stop Smoking (DC), Diabetic Ketoacidosis (DC) Activity/Diet/Wound Care/Special Instructions: Diabetic diet Activity as tolerated NO smoking, cessation information provided. Discharge Disposition: HOME SELF-CARE
[2019-01-15] MEDS ORDERED: INSULIN DETEMIR (LEVEMIR) 100 UNIT/ML SYR SQ SCH (07:00)
[2019-01-16] MEDS ORDERED: ESCITALOPRAM 10 MG TAB PO SCH ×2 (09:00)
== END 2019-01-14 19:14 | disposition home or self-care (01) | DRG 637 ==
LOC: EC 20:50 → 2SICU 01-12 00:26 → 4MS4W 01-14 08:19
PROVIDERS: ADMIT Hospitalist; ATTEND Hospitalist
PROC: 05HD33Z Insertion of Infusion Device into Right Cephalic Vein, Percutaneous Approach (ICD-10-PCS; principal; 2019-01-12 12:00)
DX: E10.10 Type 1 diabetes mellitus with ketoacidosis without coma (principal); A41.9 Sepsis, unspecified organism; G93.41 Metabolic encephalopathy; E87.0 Hyperosmolality and hypernatremia; E86.0 Dehydration; E87.6 Hypokalemia; F17.210 Nicotine dependence, cigarettes, uncomplicated; F43.10 Post-traumatic stress disorder, unspecified; F90.9 Attention-deficit hyperactivity disorder, unspecified type; G43.909 Migraine, unspecified, not intractable, without status migrainosus; K21.9 Gastro-esophageal reflux disease without esophagitis; K59.00 Constipation, unspecified; L40.9 Psoriasis, unspecified; M41.9 Scoliosis, unspecified; Z79.4 Long term (current) use of insulin; Z79.899 Other long term (current) drug therapy; Z90.49 Acquired absence of other specified parts of digestive tract; T38.3X6A Underdosing of insulin and oral hypoglycemic [antidiabetic] drugs, initial encounter; Z91.128 Patient's intentional underdosing of medication regimen for other reason; T38.3X5A Adverse effect of insulin and oral hypoglycemic [antidiabetic] drugs, initial encounter; R45.1 Restlessness and agitation; Z88.8 Allergy status to other drugs, medicaments and biological substances; R91.1 Solitary pulmonary nodule; Z91.5 Personal history of self-harm; Z56.0 Unemployment, unspecified; Z81.8 Family history of other mental and behavioral disorders
CPT/HCPCS: 36410; 36415; 36600; 70450; 71045; 74177; 76937; 80048; 80051; 80053; 81001; 82009; 82140; 82150; 82565; 82803; 82805; 82947; 83036; 83605; 83690; 83735; 84100; 84520; 84703; 85025; 85027; 87040; 93005; 96361; 96374; 96375; 99285

== ENCOUNTER 2021-08-20 06:34 | Day surgery (SDC) | payer OTHER ==
[2021-08-16 11:52] VITALS: BMI 25.6
[~2021-08-20 06:34] MED LIST: LACTATED RINGERS 1,000 ML IV SCH
[2021-08-20 06:56] VITALS: TEMP 97.1
[2021-08-20 07:05] LABS: Glucose,Whole Blood 171 mg/dL (75-99)
[2021-08-20] MEDS ORDERED: PROPOFOL 10 MG/ML 20 ML VIAL IV ONE (07:16)
[2021-08-20] MEDS ORDERED: LIDOCAINE 1% INJ 10MG/ML (20 ML MDV) ONE (07:16)
[2021-08-20] MEDS ORDERED: MIDAZOLAM 2 MG/2 ML VIAL ONE (07:16)
--- NOTE | 2021-08-20 07:31 | P.PCN ---
Date of Procedure: 08/20/21 Procedure(s) Performed: BRIEF HISTORY: Patient is a 20-year-old, pleasant, white female scheduled for an upper endoscopy as well as colonoscopy as a part of evaluation of epigastric pain associated with intermittent nausea vomiting and altered bowel movements for the last 1 year duration. His been on omeprazole 20 mg twice daily with no help. Recently was changed to Protonix 40 mg twice daily. The colonoscopy has been canceled for today and has apparently did not work.. She has long-standing history of diverticulitis diagnosed at age 11. PROCEDURE PERFORMED: Esophagogastroduodenoscopy with biopsy. PREOPERATIVE DIAGNOSIS: . Epigastric pain associated with nausea vomiting of one year duration. IV sedation per anesthesia. PROCEDURE: After informed consent was obtained, the patient was brought into the endoscopy unit. IV sedation was administered by Anesthesia under continuous monitoring. Initially the Olympus GIF-140 video endoscope was inserted into the mouth. Esophagus intubated without any difficulty. It was gradually advanced into the stomach and duodenum and carefully examined. The bulb and the second part of the duodenum appeared normal. At his were done from the duodenum to rule out celiac disease. The scope at this time was withdrawn to the stomach, adequately insufflated with air, and upon careful examination, mucosa of the antrum and mild gastritis and biopsies were done from this area. There was retained food in the body the stomach suggestive of diabetic gastroparesis. There was no evidence of gastric outlet obstruction. The, body, cardia and the fundus appeared normal. The scope was then withdrawn into the esophagus. The GE junction was located at 39 cm from the incisors. The esophagus appeared normal. There were no erosions or ulcerations seen and the patient tolerated the procedure well. IMPRESSION: 1.. Retained food in the stomach suggestive of diabetic gastroparesis. 2. Mild antral gastritis. RECOMMENDATIONS: The findings of this examination were discussed with the patient as well as a family. She was advised to start on small frequent meals, continue Protonix 40 mg twice daily. Recommend aggressive control of that she was. If she still remains symptomatic with Humira trial of Reglan as needed for diabetic gastroparesis. She was advised to be scheduled for colonoscopy later.
[2021-08-20 08:00] LABS: Glucose,Whole Blood 132 mg/dL (75-99)
[2021-08-20 08:03] VITALS: BP 105/68; PULSE 93; RESP 16
== END 2021-08-20 08:26 | disposition home or self-care (01) ==
LOC: ORWHC2ENDO 06:34
PROVIDERS: ATTEND Internal Medicine Gastroenterology
DX: D72.820 Lymphocytosis (symptomatic) (principal); K29.70 Gastritis, unspecified, without bleeding; K57.92 Diverticulitis of intestine, part unspecified, without perforation or abscess without bleeding; Z79.4 Long term (current) use of insulin; Z79.51 Long term (current) use of inhaled steroids; Z79.899 Other long term (current) drug therapy; E11.9 Type 2 diabetes mellitus without complications; F17.200 Nicotine dependence, unspecified, uncomplicated; Z90.49 Acquired absence of other specified parts of digestive tract; Z98.891 History of uterine scar from previous surgery; Z88.8 Allergy status to other drugs, medicaments and biological substances
CPT/HCPCS: 81025; 88305; 88342; 43239; J2250; J2001; J2704

== ENCOUNTER → 2021-11-19 | Outpatient (CLI) | payer OTHER ==
--- NOTE | 2021-11-19 12:47 | MR ---
EXAMINATION TYPE: MR lumbar spine wo con DATE OF EXAM: 11/19/2021 12:22 PM COMPARISON: NONE HISTORY: LOW BACK PAIN INTO LEFT SIDE Multiplanar, MultiSpin echo imaging of the lumbar spine was performed. L1-L2: Normal disc appearance without desiccation. No herniation, protrusion or disc bulging. No ca nal stenosis is present. Foramina are patent bilaterally. L2-L3: Normal disc appearance without desiccation. No herniation, protrusion or disc bulging. No ca nal stenosis is present. Foramina are patent bilaterally. L3-L4: Normal disc appearance without desiccation. No herniation, protrusion or disc bulging. No ca nal stenosis is present. Foramina are patent bilaterally. L4-L5: Mild decreased signal and loss of height consistent with mild degenerative disc disease. Mild posterior disc bulge. No evidence of disc herniation or protrusion. No central stenosis or foraminal encroachment. L5-S1: Mild decreased signal and loss of height consistent with mild degenerative disc disease. Mild posterior disc bulge. No evidence of disc herniation or protrusion. No central stenosis or foraminal encroachment. Lumbar segments are intact. No paraspinal masses are identified. Conus medullaris has a normal appe arance. IMPRESSION: 1. Mild degenerative disc disease with mild posterior disc bulge. Otherwise unremarkable study.
== END | disposition home or self-care (01) ==
LOC: RADMRIMAIN 11:32
PROVIDERS: ATTEND Family Medicine
DX: M51.26 Other intervertebral disc displacement, lumbar region (principal)
CPT/HCPCS: 72148

== ENCOUNTER → 2021-12-04 | Outpatient (CLI) | payer OTHER ==
--- NOTE | 2021-12-04 11:22 | MR ---
EXAMINATION TYPE: MR brain wo con DATE OF EXAM: 12/04/2021 COMPARISON: NONE HISTORY: No prior, headache, seizure per patient TECHNIQUE: T1-weighted sagittal, T2, FLAIR, and diffusion axial, and T2 coronal coronal views of the brain are submitted. FINDINGS: There is no evidence of acute ischemia. The ventricles, basal cisterns, and sulci overlying the conv exities are consistent with the patient's age. There is no mass effect. Craniocervical junction demonstrates low-lying cerebellar tonsils at the level of the foramen magnum. There is abnormal signal seen within the right occipital lobe white matter which is nonspecific. Ext ensive changes of chronic sinusitis. Orbits are symmetric. IMPRESSION: 1. There is abnormal signal involving the white matter of the right occipital lobe which could be on the basis of prior ischemia. Demyelinating process is not entirely excluded. Recommend postcontrast i maging to exclude other etiologies. 2. Severe sinusitis. 3. Low-lying cerebellar tonsils extending to the foramen magnum without evidence of a tonsillar beaki ng or discrete Chiari malformation.
== END | disposition home or self-care (01) ==
LOC: RADMRIMAIN 08:25
PROVIDERS: ATTEND Family Medicine
DX: J32.9 Chronic sinusitis, unspecified (principal); G93.89 Other specified disorders of brain
CPT/HCPCS: 70551